=== PATIENT | male | born 1965 | race African-American/Black ===

== ENCOUNTER 2024-12-09 13:29 | Inpatient (IN) | payer MEDICAID ==
[~2024-12-09] VITALS: Ht 185.4 cm; Wt 59.9 kg
[2024-12-09] MEDS ORDERED: AZITHROMYCIN 500MG/250ML 250 ML IV ONE (13:45)
[2024-12-09 14:23] LABS: HEMATOCRIT. 41.4 % (42.0-52.0); HEMOGLOBIN. 14.3 g/dL (14.0-18.0); MEAN PLATELET VOLUME 8.8 fl (7.4-10.4); PLATELET 140 x1000/uL (130-400); RED BLOOD CELL COUNT 4.63 mill/uL (4.7-6.1); RED CELL DISTRIBUTION WIDTH 13.4 % (11.6-14.6)
[2024-12-09 14:35] LABS: INR 1.1
[2024-12-09] MEDS: SODIUM CHLORIDE 0.9% (SEPSIS BOLUS) IV ONE (14:38)
[2024-12-09 14:40] LABS: EOSINOPHILS % MANUAL 2.0 % (0.0-5.0); LYMPHOCYTES % MANUAL 26.0 % (20.0-50.0); MONOCYTES % MANUAL 3.0 % (2.0-8.0); NEUTROPHILS % MANUAL 69.0 % (45.0-75.0); PLATELET ESTIMATE NORMAL
[2024-12-09 14:42] LABS: CREATININE 2.3 mg/dL (0.6-1.3)
[2024-12-09 14:43] LABS: UREA NITROGEN BLOOD 64 mg/dL (9-23)
[2024-12-09 14:44] LABS: ASPARTATE AMINOTRANSFERASE 43 IU/L (<34); BILIRUBIN DIRECT 0.2 mg/dL (<=3.0); TROPONIN I HIGH SENSITIVITY 9 ng/L (3.0-53)
[2024-12-09 14:45] LABS: BILIRUBIN TOTAL 0.5 mg/dL (0.1-1.0); PROTEIN TOTAL 10.6 g/dL (6.0-8.3)
[2024-12-09] MEDS: CEFTRIAXONE 1GM/50ML 50 ML IV ONE (14:52)
[2024-12-09] MEDS: AZITHROMYCIN 500MG/250ML 250 ML IV NR (14:58)
[2024-12-09 16:11] LABS: CLARITY URINE CLEAR (CLEAR); COLOR URINE DARK YELLOW (YELLOW); GLUCOSE URINE NEGATIVE (NEGATIVE); KETONES URINE NEGATIVE (NEGATIVE); LEUKOCYTE ESTERASE URINE 2+ (NEGATIVE); NITRITE URINE NEGATIVE (NEGATIVE); OCCULT BLOOD URINE 1+ (NEGATIVE); PH URINE 5.0 (4.5-8.0); PROTEIN URINE 1+ (NEGATIVE); SPECIFIC GRAVITY URINE 1.022 (1.005-1.030); UROBILINOGEN URINE 1.0 E.U./dL (0.2-1.0)
[2024-12-09 16:32] LABS: BACTERIA URINE 1+; SQUAMOUS EPITHELIAL CELL URINE 1+ /lpf (RARE/1+)
[2024-12-09] MEDS ORDERED: ONDANSETRON HCL 4MG/2ML INJ IV PRN (20:45)
[2024-12-09] MEDS ORDERED: IPRATROPIUM/ALBUTEROL 0.5-3(2.5)MG/3ML NEB HHN PRN (20:45)
[2024-12-09] MEDS ORDERED: DOCUSATE SODIUM 100MG CAPSULE PO PRN (20:45)
[2024-12-09] MEDS ORDERED: DEXTROSE 50% WATER 50ML SYRINGE IV PRN (21:15)
[2024-12-09] MEDS: INSULIN LISPRO 100 UNITS/ML SUBCUT SCH (22:00)
[2024-12-09] MEDS: PIPERACILLIN/TAZO 3.375G/50ML 50 ML IV SCH (22:24)
[2024-12-09] MEDS: BLOOD SUGAR DIAGNOSTIC STRIP TEST SCH (23:00)
[2024-12-09] MEDS: SODIUM CHLORIDE 0.9% 1,000 ML IV SCH (23:44)
[2024-12-09] MEDS: VANCOMYCIN 1.5GM PMX (XELLIA) 300 ML IV NR (23:46)
[2024-12-09] MEDS: ATORVASTATIN CALCIUM 40MG TABLET PO SCH (23:46)
[2024-12-09] MEDS: PANTOPRAZOLE SODIUM 40 MG/VIAL IV SCH (23:46)
[2024-12-10] VITALS (7 sets, daily range): BP systolic 123–146; BP diastolic 74–89; PULSE 66–88; RESP 17–20; TEMP 36.1–36.8; O2SAT 96–100
[2024-12-10 02:28] LABS: *AMPHETAMINES SCREEN URINE NEGATIVE (NEGATIVE); *BARBITURATES SCREEN URINE NEGATIVE (NEGATIVE); *BENZODIAZEPINES SCREEN URINE NEGATIVE (NEGATIVE); *COCAINE SCREEN URINE NEGATIVE (NEGATIVE); CANNABINOID URINE SCREEN PRESUMPTIVE POSITIVE (NEGATIVE); ECSTASY MDMA SCREEN URINE NEGATIVE (NEGATIVE); METHADONE URINE SCREEN NEGATIVE (NEGATIVE); OPIATES URINE SCREEN NEGATIVE (NEGATIVE); PHENCYCLIDINE URINE SCREEN NEGATIVE (NEGATIVE)
[2024-12-10] MEDS: ASPIRIN 81MG TABLET PO SCH (08:48)
[2024-12-10] MEDS: CLOPIDOGREL 75MG TABLET PO SCH (08:48)
[2024-12-10] MEDS: ENOXAPARIN 30MG/0.3ML SYR SUBCUT SCH (11:47)
[2024-12-10] MEDS: PIPERACILLIN/TAZO 3.375G/50ML 50 ML IV SCH (12:01)
[2024-12-10] MEDS: INSULIN LISPRO 100 UNITS/ML SUBCUT SCH (17:04)
[2024-12-10] MEDS: BLOOD SUGAR DIAGNOSTIC STRIP TEST SCH (17:19)
[2024-12-10 21:25] LABS: HEMATOCRIT. 38.6 % (42.0-52.0); HEMOGLOBIN. 13.0 g/dL (14.0-18.0); MEAN PLATELET VOLUME 8.3 fl (7.4-10.4); PLATELET 91 x1000/uL (130-400); RED BLOOD CELL COUNT 4.27 mill/uL (4.7-6.1); RED CELL DISTRIBUTION WIDTH 13.7 % (11.6-14.6)
[2024-12-10 21:38] LABS: TRIGLYCERIDE 62 mg/dL (0-150); UREA NITROGEN BLOOD 31 mg/dL (9-23)
[2024-12-10 21:39] LABS: LDL CHOLESTEROL 96 mg/dL (5-100)
[2024-12-10 21:43] LABS: T4 FREE 0.87 ng/dL (0.89-1.76)
[2024-12-10 21:44] LABS: CREATININE 1.4 mg/dL (0.6-1.3)
[2024-12-10 21:51] LABS: EOSINOPHILS % MANUAL 2.0 % (0.0-5.0); LYMPHOCYTES % MANUAL 1.0 % (20.0-50.0); MONOCYTES % MANUAL 5.0 % (2.0-8.0); NEUTROPHILS % MANUAL 92.0 % (45.0-75.0); PLATELET ESTIMATE DECREASED
[2024-12-10] MEDS ORDERED: VANCOMYCIN 1GM/200ML PMX (BAXTER) IV SCH (22:00)
[2024-12-10] MEDS: VANCOMYCIN 750MG/150ML (BAXTER) IV SCH (22:58)
[2024-12-11] VITALS: BP 125/76; PULSE 89; RESP 20; TEMP 36.1; O2SAT 96
[2024-12-11 04:00] VITALS: BP 112/78; PULSE 95; RESP 20; TEMP 36.7; O2SAT 96
[2024-12-11 07:15] LABS: HEMATOCRIT. 33.6 % (42.0-52.0); HEMOGLOBIN. 11.6 g/dL (14.0-18.0); MEAN PLATELET VOLUME 9.1 fl (7.4-10.4); PLATELET 95 x1000/uL (130-400); RED BLOOD CELL COUNT 3.78 mill/uL (4.7-6.1); RED CELL DISTRIBUTION WIDTH 13.6 % (11.6-14.6)
[2024-12-11 07:30] LABS: CREATININE 1.2 mg/dL (0.6-1.3); UREA NITROGEN BLOOD 25 mg/dL (9-23)
[2024-12-11 07:32] LABS: PHOSPHORUS 2.0 mg/dL (2.5-4.9)
[2024-12-11 08:00] VITALS: BP 107/68; PULSE 94; RESP 16; TEMP 36.7; O2SAT 96
[2024-12-11] MEDS: FAMOTIDINE 20MG/2ML VIAL IV SCH (09:57)
[2024-12-11] MEDS: MAGNESIUM 2 G PREMIX 50 ML IV SCH (09:58)
[2024-12-11] MEDS: SODIUM PHOSPHATE 30 MMOL in DEXT 5% WATER 490 ML IV SCH (11:59)
[2024-12-11 12:00] VITALS: BP 129/85; PULSE 85; RESP 18; TEMP 36.3; O2SAT 96
[2024-12-11] MEDS: VANCOMYCIN 1GM/200ML PMX (BAXTER) IV SCH (12:30)
[2024-12-11 16:00] VITALS: BP 127/85; PULSE 78; RESP 18; TEMP 36.4; O2SAT 96
[2024-12-11 16:48] LABS: BAND% 3.0 % (1.0-6.0); EOSINOPHILS % MANUAL 1.0 % (0.0-5.0); LYMPHOCYTES % MANUAL 2.0 % (20.0-50.0); MONOCYTES % MANUAL 8.0 % (2.0-8.0); NEUTROPHILS % MANUAL 86.0 % (45.0-75.0); PLATELET ESTIMATE DECREASED
[2024-12-11 20:00] VITALS: BP 128/86; PULSE 82; RESP 20; TEMP 36.9; O2SAT 97
[2024-12-12] VITALS: BP 120/66; PULSE 80; RESP 20; TEMP 36.9; O2SAT 97
[2024-12-12 04:00] VITALS: BP 127/81; PULSE 65; RESP 18; TEMP 37; O2SAT 97
[2024-12-12 07:02] LABS: CREATININE 1.1 mg/dL (0.6-1.3)
[2024-12-12 07:03] LABS: UREA NITROGEN BLOOD 16 mg/dL (9-23)
[2024-12-12 07:05] LABS: PHOSPHORUS 2.0 mg/dL (2.5-4.9)
[2024-12-12 07:07] LABS: T4 FREE 0.84 ng/dL (0.89-1.76)
[2024-12-12 07:13] LABS: PLATELET 81 x1000/uL (130-400); RED BLOOD CELL COUNT 3.52 mill/uL (4.7-6.1); RED CELL DISTRIBUTION WIDTH 13.3 % (11.6-14.6)
[2024-12-12 08:00] VITALS: BP 130/90; PULSE 80; RESP 18; TEMP 35.7; O2SAT 93
[2024-12-12] MEDS: POTASSIUM CHLORIDE 20MEQ TABLET SR PO SCH (08:39)
[2024-12-12 09:11] LABS: ABSOLUTE BASOPHILS 0.0 x10E3/uL (0.0-0.2); ABSOLUTE EOSINOPHILS 0.2 x10E3/uL (0.0-0.4); ABSOLUTE LYMPHOCYTES 0.2 x10E3/uL (0.7-3.1); ABSOLUTE MONOCYTES 0.3 x10E3/uL (0.1-0.9); ABSOLUTE NEUTROPHILS 4.8 x10E3/uL (1.4-7.0); BANDS 2 % (Not Estab.); BASOPHILS 0 % (Not Estab.); EOSINOPHILS 3 % (Not Estab.); HEMATOLOGY COMMENT Note: (.); IMMATURE CELLS Note (.); LYMPHOCYTES 4 % (Not Estab.); MEAN CORPUSCULAR HGB CONC. 33.8 g/dL (31.5-35.7); MONOCYTES 5 % (Not Estab.); NEUTROPHILS 85 % (Not Estab.); PLATELETS 74 x10E3/uL (150-450); RBC 3.80 x10E6/uL (4.14-5.80); RED CELL DISTRIBUTION WIDTH 13.3 % (11.6-15.4); WBC 5.5 x10E3/uL (3.4-10.8)
[2024-12-12 10:11] LABS: % CD 3 POS. LYMPHOCYTES 94.8 % (57.5-86.2); % CD 4 POS. LYMPHOCYTES 1.3 % (30.8-58.5); % CD 8 POS. LYMPH 93.3 % (12.0-35.5); ABSOLUTE CD 3 190 /uL (622-2402); ABSOLUTE CD 4 HELPER 3 /uL (359-1519); ABSOLUTE CD 8 SUPPRESSOR 187 /uL (109-897)
[2024-12-12] MEDS: SODIUM PHOSPHATE 30 MMOL in DEXT 5% WATER 490 ML IV ONE (11:00)
[2024-12-12 12:00] VITALS: BP 129/92; PULSE 71; RESP 18; TEMP 36.4; O2SAT 100
[2024-12-12] MEDS: AZITHROMYCIN 500 MG TABLET PO SCH (13:34)
[2024-12-12] MEDS: SULFAMETHOXAZOLE/TRIMETHOPRIM 400/80MG TAB PO SCH (13:34)
[2024-12-12 16:00] VITALS: BP 129/86; PULSE 97; RESP 20; TEMP 36.1; O2SAT 97
[2024-12-12 20:00] VITALS: BP 117/80; PULSE 74; RESP 20; TEMP 37; O2SAT 98
[2024-12-12] MEDS: CEFEPIME 2GM PREMIX 100ML IV SCH (21:12)
[2024-12-12] MEDS: METRONIDAZOLE 500 MG PREMIX 100 ML IV SCH (21:12)
[2024-12-13] VITALS: BP 120/60; PULSE 82; RESP 18; TEMP 36.8; O2SAT 97
[2024-12-13 04:00] VITALS: BP 138/90; PULSE 79; RESP 20; TEMP 36.8; O2SAT 98
[2024-12-13 08:00] VITALS: BP 134/79; PULSE 60; RESP 18; TEMP 36.2; O2SAT 98
[2024-12-13 08:04] VITALS: BP 134/79; PULSE 60; RESP 18; TEMP 36.2; O2SAT 98
[2024-12-13 12:00] VITALS: BP 124/85; PULSE 64; RESP 18; TEMP 36.4; O2SAT 98
[2024-12-13 16:00] VITALS: BP 126/92; PULSE 64; RESP 18; TEMP 36.1; O2SAT 98
[2024-12-14] VITALS: BP 138/96; PULSE 65; RESP 20; TEMP 36.2; O2SAT 99
[2024-12-14 04:00] VITALS: BP 141/94; PULSE 64; RESP 20; TEMP 35.9; O2SAT 97
[2024-12-14 07:11] LABS: HIV 1 ABS Reactive (Non Reactive); HIV 2 ABS Non Reactive (Non Reactive); HIV SCREEN 4G Preliminary Reactive (Non Reactive)
[2024-12-14 08:00] VITALS: BP 127/79; PULSE 63; RESP 18; TEMP 36.4; O2SAT 98
[2024-12-14 12:10] VITALS: BP 142/92; PULSE 60; RESP 18; TEMP 36.6; O2SAT 98
[2024-12-14 13:03] LABS: PLATELET 92 x1000/uL (130-400); RED BLOOD CELL COUNT 3.66 mill/uL (4.7-6.1); RED CELL DISTRIBUTION WIDTH 13.9 % (11.6-14.6)
[2024-12-14 13:08] LABS: CREATININE 0.9 mg/dL (0.6-1.3)
[2024-12-14 13:09] LABS: UREA NITROGEN BLOOD 9 mg/dL (9-23)
[2024-12-14 14:08] LABS: A/G RATIO 0.5 (0.7-1.7); BETA GLOBULIN 1.0 g/dL (0.7-1.3); GAMMA GLOBULINS 3.9 g/dL (0.4-1.8); GLOBULIN TOTAL 5.7 g/dL (2.2-3.9); M-SPIKE Not Observed g/dL (Not Observed); TOTAL PROTEIN SERUM 8.4 g/dL (6.0-8.5)
[2024-12-14 16:06] VITALS: BP 136/96; PULSE 68; RESP 18; TEMP 36.4; O2SAT 97
[2024-12-14 20:00] VITALS: BP 138/85; PULSE 68; RESP 20; TEMP 36.2; O2SAT 100
[2024-12-15] VITALS: BP 141/92; PULSE 74; RESP 21; TEMP 35.9; O2SAT 99
[2024-12-15 04:00] VITALS: BP 144/109; PULSE 65; RESP 20; TEMP 36.2; O2SAT 100
[2024-12-15 06:59] LABS: PLATELET 108 x1000/uL (130-400); RED BLOOD CELL COUNT 3.83 mill/uL (4.7-6.1); RED CELL DISTRIBUTION WIDTH 13.4 % (11.6-14.6)
[2024-12-15 07:08] LABS: CREATININE 1.0 mg/dL (0.6-1.3); UREA NITROGEN BLOOD 7 mg/dL (9-23)
[2024-12-15 07:10] LABS: PHOSPHORUS 2.1 mg/dL (2.5-4.9)
[2024-12-15 08:00] VITALS: BP 146/99; PULSE 74; RESP 18; TEMP 36.3; O2SAT 98
[2024-12-15] MEDS: MAGNESIUM 1 G PREMIX 100 ML IV NR (11:55)
[2024-12-15] MEDS: SODIUM PHOSPHATE 10 MMOL in DEXT 5% WATER 246.6667 ML IV NR (11:56)
[2024-12-15] MEDS: CALCIUM GLUCONATE 100MG/ML 10ML VIAL IV NR (11:57)
[2024-12-15 12:00] VITALS: BP 144/102; PULSE 78; RESP 18; TEMP 36.3; O2SAT 98
[2024-12-15 16:00] VITALS: BP 152/106; PULSE 76; RESP 18; TEMP 36.4; O2SAT 100
[2024-12-15] MEDS: SERTRALINE HCL 25MG TABLET PO SCH (16:01)
[2024-12-15] MEDS: CLONIDINE 0.1MG TABLET PO PRN (17:25)
[2024-12-15 20:00] VITALS: BP 139/105; PULSE 79; RESP 18; TEMP 36.8; O2SAT 100
[2024-12-16] VITALS: BP 146/104; PULSE 78; RESP 20; TEMP 36.6; O2SAT 97
[2024-12-16 04:00] VITALS: BP 145/106; PULSE 81; RESP 21; TEMP 35.9; O2SAT 98
[2024-12-16 06:04] LABS: PLATELET 102 x1000/uL (130-400); RED BLOOD CELL COUNT 3.87 mill/uL (4.7-6.1); RED CELL DISTRIBUTION WIDTH 13.6 % (11.6-14.6)
[2024-12-16 06:39] LABS: CREATININE 0.9 mg/dL (0.6-1.3); UREA NITROGEN BLOOD 7 mg/dL (9-23)
[2024-12-16 08:00] VITALS: BP 147/104; PULSE 82; RESP 18; TEMP 36.7; O2SAT 99
[2024-12-16 12:00] VITALS: BP 143/90; PULSE 70; RESP 18; TEMP 36.6; O2SAT 99
[2024-12-16 16:00] VITALS: BP 142/92; PULSE 74; RESP 18; TEMP 36.6; O2SAT 100
[2024-12-16 20:00] VITALS: BP 144/99; PULSE 63; RESP 18; TEMP 36.4; O2SAT 99
[2024-12-17] VITALS: BP 142/96; PULSE 75; RESP 18; TEMP 36.6; O2SAT 99
[2024-12-17 04:00] VITALS: BP 137/96; PULSE 74; RESP 17; TEMP 36.5; O2SAT 98
[2024-12-17 08:00] VITALS: BP 120/50; PULSE 80; RESP 18; TEMP 36.6; O2SAT 98
[2024-12-17 08:46] LABS: PLATELET 104 x1000/uL (130-400); RED BLOOD CELL COUNT 3.86 mill/uL (4.7-6.1); RED CELL DISTRIBUTION WIDTH 13.5 % (11.6-14.6)
[2024-12-17 09:10] LABS: CREATININE 1.0 mg/dL (0.6-1.3)
[2024-12-17 09:11] LABS: UREA NITROGEN BLOOD 10 mg/dL (9-23)
[2024-12-17 09:13] LABS: PHOSPHORUS 2.2 mg/dL (2.5-4.9)
[2024-12-17] MEDS: MAGNESIUM 2 G PREMIX 50 ML IV NR (11:07)
[2024-12-17 12:00] VITALS: BP 158/104; PULSE 81; RESP 18; TEMP 36.6; O2SAT 94
[2024-12-17] MEDS: SODIUM PHOSPHATE 30 MMOL in DEXT 5% WATER 490 ML IV NR (13:03)
[2024-12-17 16:00] VITALS: BP 155/103; PULSE 88; RESP 18; TEMP 36.6; O2SAT 98
[2024-12-17] MEDS: AMLODIPINE 5MG TABLET PO SCH (16:30)
[2024-12-17 20:00] VITALS: BP 151/107; PULSE 87; RESP 16; TEMP 36.8; O2SAT 99
[2024-12-18] VITALS: BP_SYST 14; BP_SYST 145; BP_DIAS 98; PULSE 96; RESP 16; TEMP 36.4; O2SAT 98
[2024-12-18 04:00] VITALS: BP 152/100; PULSE 80; RESP 16; TEMP 37; O2SAT 98
[2024-12-18 07:27] LABS: CREATININE 0.9 mg/dL (0.6-1.3); UREA NITROGEN BLOOD 12 mg/dL (9-23)
[2024-12-18 07:29] LABS: PHOSPHORUS 2.6 mg/dL (2.5-4.9)
[2024-12-18 07:39] LABS: PLATELET 116 x1000/uL (130-400); RED BLOOD CELL COUNT 3.67 mill/uL (4.7-6.1); RED CELL DISTRIBUTION WIDTH 13.6 % (11.6-14.6)
[2024-12-18 08:00] VITALS: BP 136/96; PULSE 87; RESP 18; TEMP 37.1; O2SAT 98
[2024-12-18] MEDS: POTASSIUM CHLORIDE 20MEQ TABLET SR PO SCH (08:43)
[2024-12-18 12:00] VITALS: BP 147/100; PULSE 92; RESP 18; TEMP 36.5; O2SAT 98
[2024-12-18 16:00] VITALS: BP_SYST 147; BP_SYST 167; BP_DIAS 100; PULSE 92; RESP 18; TEMP 36.5; O2SAT 98
[2024-12-18] MEDS ORDERED: POTASSIUM CHLORIDE 20 MEQ in DEXT 5% WATER 90 ML IV ONE (16:30)
[2024-12-18] MEDS: KCL 20MEQ/100ML PREMIX 100 ML IV SCH (16:34)
[2024-12-18] MEDS: HYDRALAZINE 20MG/ML VIAL IV PRN (16:34)
[2024-12-18 20:00] VITALS: BP 151/98; PULSE 109; RESP 17; TEMP 36.7; O2SAT 96
[2024-12-19] VITALS: BP 151/99; PULSE 101; RESP 18; TEMP 36.6; O2SAT 98
[2024-12-19 04:00] VITALS: BP 147/102; PULSE 94; RESP 18; TEMP 36.6; O2SAT 98
[2024-12-19 05:56] LABS: CREATININE 0.9 mg/dL (0.6-1.3)
[2024-12-19 05:57] LABS: UREA NITROGEN BLOOD 16 mg/dL (9-23)
[2024-12-19 05:59] LABS: PHOSPHORUS 2.3 mg/dL (2.5-4.9)
[2024-12-19 06:43] LABS: PLATELET 117 x1000/uL (130-400); RED BLOOD CELL COUNT 3.76 mill/uL (4.7-6.1); RED CELL DISTRIBUTION WIDTH 13.7 % (11.6-14.6)
[2024-12-19 08:00] VITALS: BP 141/98; PULSE 90; RESP 18; TEMP 36.4; O2SAT 98
[2024-12-19] MEDS: AZITHROMYCIN 600 MG TABLET PO SCH (09:00)
[2024-12-19] MEDS: SULFAMETHOXAZOLE/TRIMETHOPRIM 400/80MG TAB PO SCH (09:00)
[2024-12-19] MEDS: FLUCONAZOLE 100MG TABLET PO SCH (09:30)
[2024-12-19] MEDS: ENOXAPARIN 40MG/0.4ML SYR SUBCUT SCH (09:35)
[2024-12-19 12:00] VITALS: BP 143/100; PULSE 78; RESP 20; TEMP 35.8; O2SAT 99
[2024-12-19] MEDS: NYSTATIN 100,000 UNITS/ML 5ML UDC SSW SCH (14:30)
[2024-12-19] MEDS: SODIUM PHOSPHATE 20 MMOL in DEXT 5% WATER 243.3333 ML IV ONE (14:52)
[2024-12-19 16:00] VITALS: BP 132/95; PULSE 82; RESP 20; TEMP 35.9; O2SAT 100
[2024-12-19 20:00] VITALS: BP 137/98; PULSE 85; RESP 16; TEMP 36.3; O2SAT 100
[2024-12-20] VITALS: BP 151/101; PULSE 90; RESP 16; TEMP 36.3; O2SAT 100
[2024-12-20 04:00] VITALS: BP 137/103; RESP 16; TEMP 36.4; O2SAT 100
[2024-12-20 08:00] VITALS: BP 141/103; PULSE 91; RESP 18; TEMP 36.4; O2SAT 100
[2024-12-20] MEDS ORDERED: LIDOCAINE HCL 1% 10 MG/ML 10ML VIAL ONE (09:24)
[2024-12-20 11:14] LABS: CSF APPEARANCE CLEAR (CLEAR); CSF TOTAL VOLUME 31.9 mL
[2024-12-20 11:20] LABS: PLATELET 106 x1000/uL (130-400); RED BLOOD CELL COUNT 3.83 mill/uL (4.7-6.1); RED CELL DISTRIBUTION WIDTH 14.3 % (11.6-14.6)
[2024-12-20 11:36] LABS: CREATININE 0.8 mg/dL (0.6-1.3); UREA NITROGEN BLOOD 17 mg/dL (9-23)
[2024-12-20 11:38] LABS: PHOSPHORUS 2.7 mg/dL (2.5-4.9)
[2024-12-20 12:00] VITALS: BP 139/86; PULSE 88; RESP 18; TEMP 36.4; O2SAT 100
[2024-12-20] MEDS: SERTRALINE HCL 50MG TABLET PO SCH (13:36)
[2024-12-20 16:00] VITALS: BP 137/99; PULSE 77; RESP 20; TEMP 36.3
[2024-12-20] MEDS: MAGNESIUM 2 G PREMIX 50 ML IV SCH (16:34)
[2024-12-20 20:00] VITALS: BP 119/85; PULSE 85; RESP 18; TEMP 36; O2SAT 99
[2024-12-21] VITALS: BP 125/83; PULSE 89; RESP 20; TEMP 36.9; O2SAT 98
[2024-12-21 04:00] VITALS: BP 123/89; PULSE 76; RESP 18; TEMP 36.7; O2SAT 97
[2024-12-21 05:47] LABS: CREATININE 0.7 mg/dL (0.6-1.3); UREA NITROGEN BLOOD 17 mg/dL (9-23)
[2024-12-21 05:49] LABS: PHOSPHORUS 1.9 mg/dL (2.5-4.9)
[2024-12-21 06:58] LABS: RED BLOOD CELL COUNT 3.68 mill/uL (4.7-6.1); RED CELL DISTRIBUTION WIDTH 14.3 % (11.6-14.6)
[2024-12-21 08:00] VITALS: BP 128/90; PULSE 68; RESP 17; TEMP 35.7; O2SAT 99
[2024-12-21 08:27] LABS: PLATELET 104 x1000/uL (130-400)
[2024-12-21 12:00] VITALS: BP 129/92; PULSE 79; RESP 18; TEMP 35.9; O2SAT 100
[2024-12-21] MEDS: SODIUM PHOSPHATE 30 MMOL in DEXT 5% WATER 490 ML IV NR (12:13)
[2024-12-21 16:00] VITALS: BP 127/83; PULSE 89; RESP 18; TEMP 36.2; O2SAT 100
[2024-12-21 20:00] VITALS: BP 145/103; PULSE 83; RESP 18; TEMP 36.6; O2SAT 99
[2024-12-22] VITALS: BP 135/81; PULSE 79; RESP 19; TEMP 36.1; O2SAT 100
[2024-12-22 04:00] VITALS: BP 124/88; PULSE 94; RESP 21; TEMP 36.8; O2SAT 100
[2024-12-22 06:02] LABS: PLATELET 116 x1000/uL (130-400); RED BLOOD CELL COUNT 3.44 mill/uL (4.7-6.1); RED CELL DISTRIBUTION WIDTH 14.0 % (11.6-14.6)
[2024-12-22 06:11] LABS: CREATININE 0.7 mg/dL (0.6-1.3); UREA NITROGEN BLOOD 12 mg/dL (9-23)
[2024-12-22 06:14] LABS: PHOSPHORUS 2.4 mg/dL (2.5-4.9)
[2024-12-22 08:12] VITALS: BP 137/90; PULSE 82; RESP 18; TEMP 36.6; O2SAT 99
[2024-12-22] MEDS: MAGNESIUM 4 G PREMIX 100 ML IV NR (10:09)
[2024-12-22] MEDS: SODIUM PHOSPHATE 20 MMOL in DEXT 5% WATER 243.3333 ML IV NR (10:10)
[2024-12-22 12:00] VITALS: BP 120/77; PULSE 77; RESP 18; TEMP 36.5; O2SAT 100
[2024-12-22 16:00] VITALS: BP 126/86; PULSE 88; RESP 18; TEMP 36.6; O2SAT 100
[2024-12-22 20:00] VITALS: BP 127/86; PULSE 94; RESP 21; TEMP 36.3; O2SAT 100
[2024-12-23] VITALS: BP 124/71; PULSE 111; RESP 18; TEMP 36.5; O2SAT 100
[2024-12-23 04:00] VITALS: BP 128/79; PULSE 115; RESP 19; TEMP 36.9; O2SAT 100
[2024-12-23 08:00] VITALS: BP 128/73; PULSE 120; RESP 18; TEMP 37.2
[2024-12-23] MEDS: ACETAMINOPHEN 325MG TABLET PO PRN (11:48)
[2024-12-23] MEDS: METOPROLOL TARTRATE 5MG/5ML VIAL IV NR (11:49)
[2024-12-23 12:00] VITALS: BP 110/71; PULSE 127; RESP 18; TEMP 37.9; O2SAT 96
[2024-12-23 12:34] LABS: CREATININE 0.8 mg/dL (0.6-1.3)
[2024-12-23 12:35] LABS: PLATELET 131 x1000/uL (130-400); RED BLOOD CELL COUNT 3.28 mill/uL (4.7-6.1); RED CELL DISTRIBUTION WIDTH 14.1 % (11.6-14.6); UREA NITROGEN BLOOD 10 mg/dL (9-23)
[2024-12-23 12:37] LABS: PHOSPHORUS 1.8 mg/dL (2.5-4.9)
[2024-12-23] MEDS: MAGNESIUM 4 G PREMIX 100 ML IV NR (15:08)
[2024-12-23] MEDS: SODIUM PHOSPHATE 30 MMOL in DEXT 5% WATER 490 ML IV NR (15:08)
[2024-12-23 16:00] VITALS: BP 138/96; PULSE 107; RESP 18; TEMP 37.1; O2SAT 100
[2024-12-24] VITALS: BP 137/91; PULSE 105; RESP 18; TEMP 37.1; O2SAT 97
[2024-12-24 04:00] VITALS: BP 138/95; PULSE 103; RESP 18; TEMP 36.5; O2SAT 99
[2024-12-24 08:00] VITALS: BP 134/95; PULSE 105; RESP 18; TEMP 37.1; O2SAT 98
[2024-12-24 08:34] LABS: PLATELET 107 x1000/uL (130-400); RED BLOOD CELL COUNT 3.33 mill/uL (4.7-6.1); RED CELL DISTRIBUTION WIDTH 14.2 % (11.6-14.6)
[2024-12-24 08:36] LABS: CREATININE 0.7 mg/dL (0.6-1.3); UREA NITROGEN BLOOD 11 mg/dL (9-23)
[2024-12-24 12:00] VITALS: BP 129/86; PULSE 102; RESP 18; TEMP 37; O2SAT 96
[2024-12-24 16:00] VITALS: BP 135/93; PULSE 113; RESP 18; TEMP 36.8; O2SAT 96
[2024-12-24 20:00] VITALS: BP_SYST 98; PULSE 116; RESP 18; TEMP 36.6; O2SAT 96
[2024-12-25] VITALS: BP 134/94; PULSE 118; RESP 19; TEMP 36.6; O2SAT 97
[2024-12-25 04:00] VITALS: BP 129/85; PULSE 120; RESP 20; TEMP 36.6; O2SAT 97
[2024-12-25 08:00] VITALS: BP 139/84; PULSE 123; RESP 18; TEMP 36.4; O2SAT 98
[2024-12-25] MEDS: METOPROLOL TARTRATE 25MG TABLET PO SCH (08:42)
[2024-12-25 12:09] VITALS: BP 126/81; PULSE 105; RESP 20; TEMP 37.1; O2SAT 95
[2024-12-25 12:14] LABS: BG BASE EXCESS 3.1 mmol/L (-2.0-3.0); BG CARBOXYHEMOGLOBIN 0.3 % (0.5-1.5); BG DEOXYHEMOGLOBIN 7.2 % (0.0-5.0); BG FRACTION INSPIRED OXYGEN 21; BG HCO3 ACT 25.3 mmol/L (21.0-28.0); BG METHEMOGLOBIN 0.3 % (0.5-1.5); BG OXYGEN SATURATION 92.8 % (94.0-98.0); BG OXYHEMOGLOBIN 92.2 % (94.0-98.0); BG PCO2 31.0 mmHg (35.0-48.0); BG PH 7.530 (7.350-7.450); BG PO2 60.7 mmHg (83.0-108.0); BG SAMPLE SITE LEFT BRACHIAL; BG TOTAL HEMOGLOBIN 12.2 g/dL (13.5-17.5); BG VENT MODE ROOM AIR
[2024-12-25] MEDS ORDERED: ENOXAPARIN 40MG/0.4ML SYR SUBCUT SCH (13:00)
[2024-12-25] MEDS: ENOXAPARIN 80MG/0.8ML SYR SUBCUT SCH (14:00)
[2024-12-25] MEDS: PANTOPRAZOLE SODIUM 40 MG/VIAL IV SCH (14:15)
[2024-12-25 15:06] LABS: PLATELET 107 x1000/uL (130-400); RED BLOOD CELL COUNT 3.28 mill/uL (4.7-6.1); RED CELL DISTRIBUTION WIDTH 14.3 % (11.6-14.6)
[2024-12-25 15:09] LABS: CREATININE 0.8 mg/dL (0.6-1.3)
[2024-12-25 15:10] LABS: UREA NITROGEN BLOOD 18 mg/dL (9-23)
[2024-12-25 15:12] LABS: PHOSPHORUS 3.4 mg/dL (2.5-4.9)
[2024-12-25 16:00] VITALS: BP 131/83; PULSE 100; RESP 18; TEMP 36.5; O2SAT 97
[2024-12-25] MEDS: MAGNESIUM 2 G PREMIX 50 ML IV NR (18:02)
[2024-12-25] MEDS: SODIUM CHLORIDE 0.9% 500 ML IV ONE (18:09)
[2024-12-25 20:00] VITALS: BP 132/83; PULSE 109; RESP 17; TEMP 36.9; O2SAT 92
[2024-12-25] MEDS ORDERED: IOHEXOL-350 100 ML BOTTLE ONE (23:40)
[2024-12-26] VITALS: BP 132/81; PULSE 106; RESP 16; TEMP 37.5; O2SAT 96
[2024-12-26 04:00] VITALS: BP 135/83; PULSE 98; RESP 18; TEMP 37.2; O2SAT 98
[2024-12-26 06:07] LABS: CREATININE 0.9 mg/dL (0.6-1.3); UREA NITROGEN BLOOD 19 mg/dL (9-23)
[2024-12-26 06:18] LABS: PLATELET 123 x1000/uL (130-400); RED BLOOD CELL COUNT 3.37 mill/uL (4.7-6.1); RED CELL DISTRIBUTION WIDTH 14.3 % (11.6-14.6)
[2024-12-26 08:00] VITALS: BP 126/73; PULSE 102; RESP 18; TEMP 36.5; O2SAT 96
[2024-12-26] MEDS: SODIUM CHLORIDE 0.9% 1,000 ML IV SCH (09:34)
[2024-12-26 12:00] VITALS: BP 132/92; PULSE 103; RESP 18; TEMP 36.4; O2SAT 98
[2024-12-26 16:00] VITALS: BP 136/89; PULSE 98; RESP 18; TEMP 36.8; O2SAT 97
[2024-12-26] MEDS: SULFAMETHOXAZOLE/TRIMETHOPRIM 800/160MG TABLET PO SCH (18:42)
[2024-12-26 20:00] VITALS: BP 119/71; PULSE 110; RESP 17; TEMP 36.5; O2SAT 97
[2024-12-27] VITALS: BP 113/69; PULSE 93; RESP 18; TEMP 36.7; O2SAT 96
[2024-12-27 04:00] VITALS: BP_SYST 113; BP_SYST 127; BP_SYST 136; BP_DIAS 69; BP_DIAS 78; BP_DIAS 84; PULSE 112; PULSE 59; PULSE 93; RESP 18; TEMP 35.8; TEMP 36.3; TEMP 36.7; O2SAT 96
[2024-12-27 07:45] LABS: CREATININE 0.9 mg/dL (0.6-1.3); UREA NITROGEN BLOOD 18 mg/dL (9-23)
[2024-12-27 07:46] LABS: LACTATE DEHYDROGENASE 179 IU/L (120-246)
[2024-12-27 07:54] LABS: PLATELET 142 x1000/uL (130-400); RED BLOOD CELL COUNT 2.98 mill/uL (4.7-6.1); RED CELL DISTRIBUTION WIDTH 14.1 % (11.6-14.6)
[2024-12-27] MEDS: ENOXAPARIN 40MG/0.4ML SYR SUBCUT SCH (08:17)
[2024-12-27 08:22] VITALS: BP 134/78; PULSE 112; RESP 18; TEMP 36.9; O2SAT 94
[2024-12-27 12:07] VITALS: BP 120/74; PULSE 110; RESP 18; TEMP 38; O2SAT 96
[2024-12-27] MEDS: BICTEGRAVIR 50MG/EMTRICITABINE 200MG/TENOFOVIR ALA 25MG PO SCH (14:18)
[2024-12-27 16:10] VITALS: BP 124/78; PULSE 110; RESP 18; TEMP 37; O2SAT 95
[2024-12-27 20:00] VITALS: BP 132/82; PULSE 111; RESP 16; TEMP 38.3; O2SAT 95
[2024-12-28] VITALS: BP 130/85; PULSE 111; RESP 20; TEMP 37.2; O2SAT 96
[2024-12-28 04:00] VITALS: BP 127/73; PULSE 99; RESP 16; TEMP 37.2; O2SAT 95
[2024-12-28 08:12] VITALS: BP 120/80; PULSE 100; RESP 18; TEMP 36.8; O2SAT 97
[2024-12-28 08:13] LABS: CREATININE 0.9 mg/dL (0.6-1.3)
[2024-12-28 08:14] LABS: UREA NITROGEN BLOOD 18 mg/dL (9-23)
[2024-12-28 08:16] LABS: PHOSPHORUS 3.5 mg/dL (2.5-4.9)
[2024-12-28 08:30] LABS: PLATELET 142 x1000/uL (130-400); RED BLOOD CELL COUNT 2.87 mill/uL (4.7-6.1); RED CELL DISTRIBUTION WIDTH 13.7 % (11.6-14.6)
[2024-12-28] MEDS: MAGNESIUM 2 G PREMIX 50 ML IV NR (09:15)
[2024-12-28] MEDS ORDERED: HYDRALAZINE 10 MG in SODIUM CHLORIDE 0.9% 49.5 ML IV PRN (11:00)
[2024-12-28 12:00] VITALS: BP 118/74; PULSE 89; RESP 20; TEMP 36.3; O2SAT 96
[2024-12-28 16:00] VITALS: BP 116/75; PULSE 94; RESP 20; TEMP 36.6; O2SAT 9
[2024-12-28 20:00] VITALS: BP 115/78; PULSE 90; RESP 18; TEMP 36.4; O2SAT 96
[2024-12-28] MEDS: PENICILLIN G BENZATHINE 1,200,000 UNITS/2ML SYR IM SCH (21:48)
[2024-12-29] VITALS: BP 112/73; PULSE 83; RESP 18; TEMP 36.3; O2SAT 96
[2024-12-29 04:00] VITALS: BP 121/83; PULSE 87; RESP 18; TEMP 36.4; O2SAT 95
[2024-12-29] MEDS: LEVOTHYROXINE SODIUM 25MCG TABLET PO SCH (06:14)
[2024-12-29 08:00] VITALS: BP 130/80; PULSE 94; RESP 18; TEMP 36.4; O2SAT 99
[2024-12-29 08:00] LABS: OSMOLALITY URINE 540 mOsm/kg (500-850)
[2024-12-29 08:08] LABS: SODIUM URINE RANDOM 186 mEq/L
[2024-12-29 08:19] LABS: PLATELET 161 x1000/uL (130-400); RED BLOOD CELL COUNT 2.99 mill/uL (4.7-6.1); RED CELL DISTRIBUTION WIDTH 13.4 % (11.6-14.6)
[2024-12-29 08:37] LABS: CREATININE 0.8 mg/dL (0.6-1.3); UREA NITROGEN BLOOD 17 mg/dL (9-23)
[2024-12-29 08:39] LABS: PHOSPHORUS 3.4 mg/dL (2.5-4.9)
[2024-12-29] MEDS: BICTEGRAVIR 50MG/EMTRICITABINE 200MG/TENOFOVIR ALA 25MG PO SCH (10:29)
[2024-12-29 12:00] VITALS: BP 124/84; PULSE 74; RESP 18; TEMP 36.5; O2SAT 100
[2024-12-29 16:00] VITALS: BP 118/85; PULSE 77; RESP 17; TEMP 36.5; O2SAT 96
[2024-12-29] MEDS ORDERED: SODIUM POLYSTYRENE SULFONATE 15 G/60 ML BOT PO ONE (16:30)
[2024-12-29] MEDS ORDERED: SODIUM ZIRCONIUM CYCLOSILICATE 10GM/PACKET PO SCH (17:00)
[2024-12-29] MEDS: MAGNESIUM 4 G PREMIX 100 ML IV SCH (18:00)
[2024-12-29 20:00] VITALS: BP 111/64; PULSE 83; RESP 18; TEMP 36.6; O2SAT 95
[2024-12-29] MEDS: WATER IV SCH (22:00)
[2024-12-29] MEDS: DEXTROSE IV SCH (22:00)
[2024-12-29] MEDS: PENICILLIN POTASSIUM IV SCH (22:00)
[2024-12-30] VITALS (17 sets, daily range): BP systolic 113–159; BP diastolic 74–85; PULSE 75–122; RESP 15–32; TEMP 36.4–37.4; O2SAT 88–100
[2024-12-30] MEDS: GUAIFENESIN 200MG/10ML SUGAR FREE UDC PO PRN (02:10)
[2024-12-30 03:30] LABS: BG BASE EXCESS -2.8 mmol/L (-2.0-3.0); BG CARBOXYHEMOGLOBIN 0.9 % (0.5-1.5); BG DEOXYHEMOGLOBIN 27.1 % (0.0-5.0); BG FRACTION INSPIRED OXYGEN 21; BG HCO3 ACT 19.1 mmol/L (21.0-28.0); BG METHEMOGLOBIN 0.1 % (0.5-1.5); BG OXYGEN SATURATION 72.6 % (94.0-98.0); BG OXYHEMOGLOBIN 71.9 % (94.0-98.0); BG PCO2 26.2 mmHg (35.0-48.0); BG PH 7.481 (7.350-7.450); BG PO2 41.9 mmHg (83.0-108.0); BG SAMPLE SITE RIGHT RADIAL; BG TOTAL HEMOGLOBIN 13.4 g/dL (13.5-17.5); BG VENT MODE ROOM AIR
[2024-12-30 03:46] LABS: BG BASE EXCESS -4.1 mmol/L (-2.0-3.0); BG CARBOXYHEMOGLOBIN 0.7 % (0.5-1.5); BG DEOXYHEMOGLOBIN 14.1 % (0.0-5.0); BG FLOW(L/min) 3.00 L/min; BG FRACTION INSPIRED OXYGEN 32; BG HCO3 ACT 17.8 mmol/L (21.0-28.0); BG METHEMOGLOBIN 0.1 % (0.5-1.5); BG OXYGEN SATURATION 85.8 % (94.0-98.0); BG OXYHEMOGLOBIN 85.1 % (94.0-98.0); BG PCO2 24.1 mmHg (35.0-48.0); BG PH 7.486 (7.350-7.450); BG PO2 53.5 mmHg (83.0-108.0); BG SAMPLE SITE RIGHT RADIAL; BG TOTAL HEMOGLOBIN 11.7 g/dL (13.5-17.5); BG VENT MODE NASAL CANNULA
[2024-12-30] MEDS: IPRATROPIUM/ALBUTEROL 0.5-3(2.5)MG/3ML NEB HHN NR (04:05)
[2024-12-30] MEDS: IPRATROPIUM/ALBUTEROL 0.5-3(2.5)MG/3ML NEB HHN SCH (08:08)
[2024-12-30 08:40] LABS: HEMATOCRIT. 27.1 % (42.0-52.0); HEMOGLOBIN. 9.5 g/dL (14.0-18.0); MEAN PLATELET VOLUME 7.6 fl (7.4-10.4); PLATELET 313 x1000/uL (130-400); RED BLOOD CELL COUNT 3.12 mill/uL (4.7-6.1); RED CELL DISTRIBUTION WIDTH 13.2 % (11.6-14.6)
[2024-12-30 08:53] LABS: CREATININE 0.9 mg/dL (0.6-1.3); UREA NITROGEN BLOOD 17 mg/dL (9-23)
[2024-12-30 08:55] LABS: ASPARTATE AMINOTRANSFERASE 127 IU/L (<34); BILIRUBIN DIRECT 0.2 mg/dL (<=3.0); BILIRUBIN TOTAL 0.4 mg/dL (0.1-1.0); PHOSPHORUS 3.6 mg/dL (2.5-4.9)
[2024-12-30 10:26] LABS: BG BASE EXCESS -2.7 mmol/L (-2.0-3.0); BG CARBOXYHEMOGLOBIN 0.3 % (0.5-1.5); BG DEOXYHEMOGLOBIN 1.7 % (0.0-5.0); BG FLOW(L/min) 30.00 L/min; BG FRACTION INSPIRED OXYGEN 100; BG HCO3 ACT 20.1 mmol/L (21.0-28.0); BG METHEMOGLOBIN 0.0 % (0.5-1.5); BG OXYGEN SATURATION 98.3 % (94.0-98.0); BG OXYHEMOGLOBIN 98.0 % (94.0-98.0); BG PCO2 28.7 mmHg (35.0-48.0); BG PH 7.464 (7.350-7.450); BG PO2 108.8 mmHg (83.0-108.0); BG SAMPLE SITE RIGHT RADIAL; BG TOTAL HEMOGLOBIN 10.8 g/dL (13.5-17.5); BG VENT MODE HIGH FLOW
[2024-12-30] MEDS: FAMOTIDINE 20MG/2ML VIAL IV SCH (10:52)
[2024-12-30 10:59] LABS: PROTEIN TOTAL 8.0 g/dL (6.0-8.3)
[2024-12-30] MEDS ORDERED: PENICILLIN POTASSIUM IV SCH (12:00)
[2024-12-30] MEDS ORDERED: SODIUM CHLORIDE IV SCH (12:00)
[2024-12-30] MEDS: SODIUM ZIRCONIUM CYCLOSILICATE 10GM/PACKET PO SCH (13:16)
[2024-12-30] MEDS: PENICILLIN POTASSIUM IV SCH (13:17)
[2024-12-30] MEDS: SODIUM CHLORIDE IV SCH (13:17)
[2024-12-30 14:16] LABS: BAND% 16.0 % (1.0-6.0); LYMPHOCYTES % MANUAL 4.0 % (20.0-50.0); MONOCYTES % MANUAL 9.0 % (2.0-8.0); NEUTROPHILS % MANUAL 71.0 % (45.0-75.0); PLATELET ESTIMATE NORMAL
[2024-12-30] MEDS: SODIUM CHLORIDE 3% 500 ML IV ONE (14:50)
[2024-12-30] MEDS: METRONIDAZOLE 500 MG PREMIX 100 ML IV SCH (18:16)
[2024-12-30 18:22] LABS: CREATININE 0.9 mg/dL (0.6-1.3); UREA NITROGEN BLOOD 17 mg/dL (9-23)
[2024-12-30] MEDS: CALCIUM CHLORIDE 1GM/10ML SYR IV SCH (20:34)
[2024-12-30] MEDS: DEXTROSE 50% WATER 50ML SYRINGE IV SCH (20:35)
[2024-12-30] MEDS: INSULIN REGULAR (HUMULIN R) 1000UNITS/10ML VIAL IV SCH (20:36)
[2024-12-30] MEDS ORDERED: ALBUTEROL (0.5%) 2.5MG/0.5ML NEB HHN ONE (21:00)
[2024-12-30] MEDS: CEFTRIAXONE 2GM/50ML 50 ML IV SCH (21:02)
[2024-12-30] MEDS: ALBUTEROL (0.083%) 2.5MG/3ML NEB HHN SCH (21:04)
[2024-12-31] VITALS (17 sets, daily range): BP systolic 102–128; BP diastolic 63–93; PULSE 90–121; RESP 15–24; TEMP 36.8–37.5; O2SAT 95–100
[2024-12-31 06:58] LABS: UREA NITROGEN BLOOD 18 mg/dL (9-23)
[2024-12-31 07:00] LABS: CREATININE 0.8 mg/dL (0.6-1.3); HEMATOCRIT. 27.6 % (42.0-52.0); HEMOGLOBIN. 9.5 g/dL (14.0-18.0); MEAN PLATELET VOLUME 7.5 fl (7.4-10.4); PLATELET 291 x1000/uL (130-400); RED BLOOD CELL COUNT 3.17 mill/uL (4.7-6.1); RED CELL DISTRIBUTION WIDTH 13.5 % (11.6-14.6)
[2024-12-31 07:02] LABS: ASPARTATE AMINOTRANSFERASE 82 IU/L (<34); BILIRUBIN DIRECT 0.1 mg/dL (<=3.0)
[2024-12-31 07:03] LABS: BILIRUBIN TOTAL 0.3 mg/dL (0.1-1.0); PHOSPHORUS 3.7 mg/dL (2.5-4.9); PROTEIN TOTAL 7.3 g/dL (6.0-8.3)
[2024-12-31 08:39] LABS: ASPARTATE AMINOTRANSFERASE 84 IU/L (<34); BILIRUBIN DIRECT 0.1 mg/dL (<=3.0); BILIRUBIN TOTAL 0.3 mg/dL (0.1-1.0); PROTEIN TOTAL 7.3 g/dL (6.0-8.3)
[2024-12-31] MEDS: MAGNESIUM 2 G PREMIX 50 ML IV SCH (09:44)
[2024-12-31 10:53] LABS: BG BASE EXCESS -3.8 mmol/L (-2.0-3.0); BG CARBOXYHEMOGLOBIN 0.3 % (0.5-1.5); BG DEOXYHEMOGLOBIN 5.1 % (0.0-5.0); BG FLOW(L/min) 5.00 L/min; BG FRACTION INSPIRED OXYGEN 40; BG HCO3 ACT 19.3 mmol/L (21.0-28.0); BG METHEMOGLOBIN 0.3 % (0.5-1.5); BG OXYGEN SATURATION 94.9 % (94.0-98.0); BG OXYHEMOGLOBIN 94.3 % (94.0-98.0); BG PCO2 28.9 mmHg (35.0-48.0); BG PH 7.443 (7.350-7.450); BG PO2 73.3 mmHg (83.0-108.0); BG SAMPLE SITE RIGHT RADIAL; BG TOTAL HEMOGLOBIN 10.6 g/dL (13.5-17.5); BG VENT MODE NASAL CANNULA
[2024-12-31] MEDS: SODIUM CHLORIDE 0.9% 1,000 ML IV SCH (13:53)
[2024-12-31 16:03] LABS: HEPATITIS A AB IGM NEGATIVE (Negative)
[2024-12-31 16:04] LABS: HEPATITIS C AB NON REACTIVE (Neg) (Negative)
[2024-12-31 16:06] LABS: HEPATITIS B CORE AB IGM NEGATIVE (Negative)
[2024-12-31 16:32] LABS: BAND% 6.0 % (1.0-6.0); LYMPHOCYTES % MANUAL 4.0 % (20.0-50.0); MONOCYTES % MANUAL 3.0 % (2.0-8.0); NEUTROPHILS % MANUAL 87.0 % (45.0-75.0); PLATELET ESTIMATE NORMAL
[2024-12-31] MEDS: KETOROLAC 30MG/ML VIAL IV NR (18:36)
[2025-01-01] VITALS (17 sets, daily range): BP systolic 104–131; BP diastolic 65–101; PULSE 86–108; RESP 15–20; TEMP 36.2–37.3; O2SAT 96–100
[2025-01-01 06:26] LABS: CREATININE 0.8 mg/dL (0.6-1.3)
[2025-01-01 06:27] LABS: UREA NITROGEN BLOOD 22 mg/dL (9-23)
[2025-01-01 06:28] LABS: ASPARTATE AMINOTRANSFERASE 53 IU/L (<34)
[2025-01-01 06:29] LABS: BILIRUBIN DIRECT 0.1 mg/dL (<=3.0); BILIRUBIN TOTAL 0.3 mg/dL (0.1-1.0); PHOSPHORUS 3.9 mg/dL (2.5-4.9); PROTEIN TOTAL 7.2 g/dL (6.0-8.3)
[2025-01-01 07:25] LABS: PLATELET 347 x1000/uL (130-400); RED BLOOD CELL COUNT 2.91 mill/uL (4.7-6.1); RED CELL DISTRIBUTION WIDTH 14.1 % (11.6-14.6)
[2025-01-01] MEDS ORDERED: NON FORMULARY MED XX SCH (10:30)
[2025-01-01] MEDS ORDERED: HYDRALAZINE 20MG/ML VIAL IV PRN (10:45)
[2025-01-01] MEDS: PANTOPRAZOLE SODIUM 40 MG/VIAL IV SCH (11:38)
[2025-01-01] MEDS: IRON SUCROSE COMPLEX 100 MG/5 ML ML IV SCH (11:39)
[2025-01-02] VITALS (15 sets, daily range): BP systolic 115–126; BP diastolic 76–89; PULSE 77–97; RESP 13–17; TEMP 36.2–36.5; O2SAT 96–99
[2025-01-02] MEDS: METRONIDAZOLE 500MG TABLET PO SCH (05:15)
[2025-01-02 06:12] LABS: HBSAG SCREEN Confirm. indicated (Negative)
[2025-01-02 06:19] LABS: INR 1.0
[2025-01-02 06:24] LABS: HEMATOCRIT. 29.7 % (42.0-52.0); HEMOGLOBIN. 10.1 g/dL (14.0-18.0); MEAN PLATELET VOLUME 6.9 fl (7.4-10.4); PLATELET 436 x1000/uL (130-400); RED BLOOD CELL COUNT 3.35 mill/uL (4.7-6.1); RED CELL DISTRIBUTION WIDTH 14.0 % (11.6-14.6)
[2025-01-02 06:27] LABS: CREATININE 0.7 mg/dL (0.6-1.3); UREA NITROGEN BLOOD 18 mg/dL (9-23)
[2025-01-02 06:29] LABS: FOLIC ACID (FOLATE) SERUM 3.72 ng/mL (>5.38); PHOSPHORUS 3.2 mg/dL (2.5-4.9)
[2025-01-02 06:30] LABS: VITAMIN B12 SERUM 1883 pg/mL (211-911)
[2025-01-02 09:07] LABS: HBSAG CONFIRMATION Positive (.)
[2025-01-02 09:53] LABS: ASPARTATE AMINOTRANSFERASE 63 IU/L (<34); BILIRUBIN DIRECT < 0.1 mg/dL (<=3.0)
[2025-01-02 09:54] LABS: BILIRUBIN TOTAL 0.2 mg/dL (0.1-1.0); PROTEIN TOTAL 6.9 g/dL (6.0-8.3)
[2025-01-02] MEDS: MAGNESIUM GLUCONATE 500MG TABLET PO SCH (11:26)
[2025-01-02] MEDS: MAGNESIUM 2 G PREMIX 50 ML IV NR (11:26)
[2025-01-03] VITALS (15 sets, daily range): BP systolic 118–130; BP diastolic 81–102; PULSE 69–91; RESP 11–17; TEMP 36.2–36.6; O2SAT 95–99
[2025-01-03 06:26] LABS: HEMATOCRIT. 27.0 % (42.0-52.0); HEMOGLOBIN. 9.2 g/dL (14.0-18.0); MEAN PLATELET VOLUME 6.7 fl (7.4-10.4); PLATELET 502 x1000/uL (130-400); RED BLOOD CELL COUNT 3.11 mill/uL (4.7-6.1); RED CELL DISTRIBUTION WIDTH 13.9 % (11.6-14.6)
[2025-01-03 06:27] LABS: INR 1.1
[2025-01-03 06:32] LABS: CREATININE 0.7 mg/dL (0.6-1.3); UREA NITROGEN BLOOD 17 mg/dL (9-23)
[2025-01-03 08:58] LABS: ASPARTATE AMINOTRANSFERASE 64 IU/L (<34); BILIRUBIN DIRECT < 0.1 mg/dL (<=3.0)
[2025-01-03 08:59] LABS: BILIRUBIN TOTAL 0.2 mg/dL (0.1-1.0); PROTEIN TOTAL 7.5 g/dL (6.0-8.3)
[2025-01-03] MEDS: FERROUS SULFATE 300MG/5ML UDC NG SCH (11:42)
[2025-01-03 12:39] LABS: BAND% 5.0 % (1.0-6.0); LYMPHOCYTES % MANUAL 14.0 % (20.0-50.0); MONOCYTES % MANUAL 20.0 % (2.0-8.0); NEUTROPHILS % MANUAL 61.0 % (45.0-75.0)
[2025-01-03 12:41] LABS: PLATELET ESTIMATE INCREASED
[2025-01-03 13:45] LABS: BAND% 7.0 % (1.0-6.0); EOSINOPHILS % MANUAL 5.0 % (0.0-5.0); LYMPHOCYTES % MANUAL 4.0 % (20.0-50.0); MONOCYTES % MANUAL 8.0 % (2.0-8.0); NEUTROPHILS % MANUAL 76.0 % (45.0-75.0); PLATELET ESTIMATE INCREASED
[2025-01-04] VITALS (13 sets, daily range): BP systolic 117–149; BP diastolic 58–99; PULSE 68–97; RESP 11–20; TEMP 35.4–36.7; O2SAT 95–100
[2025-01-04 06:42] LABS: HEMATOCRIT. 26.4 % (42.0-52.0); HEMOGLOBIN. 9.3 g/dL (14.0-18.0); MEAN PLATELET VOLUME 6.8 fl (7.4-10.4); PLATELET 492 x1000/uL (130-400); RED BLOOD CELL COUNT 3.03 mill/uL (4.7-6.1); RED CELL DISTRIBUTION WIDTH 14.2 % (11.6-14.6)
[2025-01-04 06:54] LABS: INR 1.1
[2025-01-04 07:29] LABS: BILIRUBIN DIRECT < 0.1 mg/dL (<=3.0)
[2025-01-04 07:30] LABS: ASPARTATE AMINOTRANSFERASE 64 IU/L (<34); BILIRUBIN TOTAL < 0.2 mg/dL (0.1-1.0); PROTEIN TOTAL 6.9 g/dL (6.0-8.3)
[2025-01-04 07:45] LABS: CREATININE 0.6 mg/dL (0.6-1.3); UREA NITROGEN BLOOD 17 mg/dL (9-23)
[2025-01-04 07:47] LABS: PHOSPHORUS 3.2 mg/dL (2.5-4.9)
[2025-01-04] MEDS ORDERED: PENICILLIN G BENZATHINE 2,400,000 UNITS/4ML SYR IM SCH (09:00)
[2025-01-04] MEDS ORDERED: SIMETHICONE 40 MG/0.6 ML 15ML ONE (10:18)
[2025-01-04 11:14] LABS: BAND% 25.0 % (1.0-6.0); EOSINOPHILS % MANUAL 2.0 % (0.0-5.0); LYMPHOCYTES % MANUAL 8.0 % (20.0-50.0); MONOCYTES % MANUAL 17.0 % (2.0-8.0); NEUTROPHILS % MANUAL 48.0 % (45.0-75.0)
[2025-01-04 11:16] LABS: PLATELET ESTIMATE INCREASED
[2025-01-04] MEDS ORDERED: DEXTROSE 50% WATER 50ML SYRINGE IV ONE (11:27)
[2025-01-04] MEDS ORDERED: PROPOFOL 200MG/20ML VIAL IV ONE (11:33)
[2025-01-04] MEDS ORDERED: GLYCOPYRROLATE 0.2 MG/ML 2ML VIAL IV PRN (12:00)
[2025-01-04] MEDS ORDERED: HYDRALAZINE 20MG/ML VIAL IV PRN (12:00)
[2025-01-04] MEDS ORDERED: DEXAMETHASONE 4MG/ML 1ML VIAL IV PRN (12:00)
[2025-01-04] MEDS ORDERED: ONDANSETRON HCL 4MG/2ML INJ IV PRN (12:00)
[2025-01-04] MEDS: HYDROMORPHONE HCL/PF 1MG/ML INJ IV PRN (17:09)
[2025-01-05] VITALS (12 sets, daily range): BP systolic 110–127; BP diastolic 78–94; PULSE 77–90; RESP 13–19; TEMP 35.9–36.9; O2SAT 95–100
[2025-01-05] MEDS: METOCLOPRAMIDE HCL 10MG/2ML VIAL IV SCH (06:11)
[2025-01-06] VITALS (13 sets, daily range): BP systolic 116–136; BP diastolic 82–94; PULSE 76–99; RESP 13–20; TEMP 36.6–36.9; O2SAT 97–100
[2025-01-06] MEDS: ATORVASTATIN CALCIUM 40MG TABLET PO SCH (23:17)
[2025-01-07] VITALS (13 sets, daily range): BP systolic 118–144; BP diastolic 79–97; PULSE 72–95; RESP 14–19; TEMP 36.2–36.7; O2SAT 95–100
[2025-01-07 07:27] LABS: CREATININE 0.6 mg/dL (0.6-1.3)
[2025-01-07 07:30] LABS: UREA NITROGEN BLOOD 12 mg/dL (9-23)
[2025-01-07 07:32] LABS: PHOSPHORUS 3.1 mg/dL (2.5-4.9)
[2025-01-07 10:54] LABS: HEMATOCRIT. 27.9 % (42.0-52.0); HEMOGLOBIN. 9.5 g/dL (14.0-18.0); MEAN PLATELET VOLUME 6.7 fl (7.4-10.4); PLATELET 402 x1000/uL (130-400); RED BLOOD CELL COUNT 3.18 mill/uL (4.7-6.1); RED CELL DISTRIBUTION WIDTH 14.5 % (11.6-14.6)
[2025-01-07 11:16] LABS: CREATININE 0.6 mg/dL (0.6-1.3)
[2025-01-07 11:17] LABS: UREA NITROGEN BLOOD 13 mg/dL (9-23)
[2025-01-07] MEDS: SODIUM ZIRCONIUM CYCLOSILICATE 10GM/PACKET PO NR (12:15)
[2025-01-07 14:06] LABS: BAND% 3.0 % (1.0-6.0); EOSINOPHILS % MANUAL 2.0 % (0.0-5.0); LYMPHOCYTES % MANUAL 15.0 % (20.0-50.0); METAMYELOCYTES % 1.0 % (0-0); MONOCYTES % MANUAL 14.0 % (2.0-8.0); NEUTROPHILS % MANUAL 65.0 % (45.0-75.0); PLATELET ESTIMATE SLIGHTLY INCREASED
[2025-01-08] VITALS (15 sets, daily range): BP systolic 110–131; BP diastolic 75–94; PULSE 66–94; RESP 15–20; TEMP 36.1–36.4; O2SAT 97–100
[2025-01-08 15:07] LABS: CREATININE 0.6 mg/dL (0.6-1.3); UREA NITROGEN BLOOD 15 mg/dL (9-23)
[2025-01-08] MEDS: SODIUM ZIRCONIUM CYCLOSILICATE 10GM/PACKET PO NR (23:04)
[2025-01-09] VITALS (12 sets, daily range): BP systolic 99–143; BP diastolic 73–97; PULSE 70–95; RESP 13–17; TEMP 35.9–37.2; O2SAT 96–100
[2025-01-09] MEDS ORDERED: CLONIDINE 0.1MG TABLET PO PRN (04:15)
[2025-01-09] MEDS ORDERED: ONDANSETRON HCL 4MG/2ML INJ IV PRN (04:15)
[2025-01-09] MEDS ORDERED: GUAIFENESIN 200MG/10ML SUGAR FREE UDC PO PRN (04:15)
[2025-01-09] MEDS ORDERED: IPRATROPIUM/ALBUTEROL 0.5-3(2.5)MG/3ML NEB HHN PRN (04:15)
[2025-01-09] MEDS ORDERED: ACETAMINOPHEN 325MG TABLET PO PRN (04:30)
[2025-01-09] MEDS ORDERED: PANTOPRAZOLE SODIUM 40 MG/VIAL IV SCH (09:00)
[2025-01-09] MEDS: BLOOD SUGAR DIAGNOSTIC STRIP TEST SCH (09:20)
[2025-01-09] MEDS: SODIUM ZIRCONIUM CYCLOSILICATE 10GM/PACKET PO NR (12:36)
[2025-01-09 14:07] LABS: CREATININE 0.5 mg/dL (0.6-1.3); UREA NITROGEN BLOOD 14 mg/dL (9-23)
[2025-01-09] MEDS: HYDROXYZINE 25MG TABLET PO PRN (14:44)
[2025-01-09] MEDS ORDERED: ATORVASTATIN CALCIUM 40MG TABLET PO SCH (21:00)
[2025-01-10] VITALS (19 sets, daily range): BP systolic 108–139; BP diastolic 78–99; PULSE 62–86; RESP 12–17; TEMP 35.8–36.5; O2SAT 98–100
[2025-01-10] MEDS: RISPERIDONE 0.25MG TABLET PO SCH (21:13)
[2025-01-11] VITALS (18 sets, daily range): BP systolic 102–126; BP diastolic 75–89; PULSE 63–76; RESP 12–16; TEMP 35.6–36.6; O2SAT 99–100
[2025-01-11 08:04] LABS: CREATININE 0.5 mg/dL (0.6-1.3)
[2025-01-11 08:06] LABS: UREA NITROGEN BLOOD 14 mg/dL (9-23)
[2025-01-11 08:08] LABS: PHOSPHORUS 2.4 mg/dL (2.5-4.9)
[2025-01-11] MEDS: DEMECLOCYCLINE HCL 300MG TABLET PO SCH (11:17)
[2025-01-11] MEDS: MAGNESIUM 2 G PREMIX 50 ML IV NR (11:17)
[2025-01-11] MEDS: SODIUM ZIRCONIUM CYCLOSILICATE 10GM/PACKET PO NR (11:17)
[2025-01-11] MEDS: SODIUM PHOSPHATE 20 MMOL in DEXT 5% WATER 243.3333 ML IV NR (14:24)
[2025-01-12] VITALS (14 sets, daily range): BP systolic 97–132; BP diastolic 55–80; PULSE 74–127; RESP 15–40; TEMP 34.4–37.3; O2SAT 91–99
[2025-01-12 07:37] LABS: BASOPHILS % 0.1 % (0.0-2.0); EOSINOPHILS % 1.3 % (0.0-5.0); HEMATOCRIT. 26.7 % (42.0-52.0); HEMOGLOBIN. 9.4 g/dL (14.0-18.0); LYMPHOCYTES % 7.2 % (20.0-50.0); MEAN PLATELET VOLUME 7.3 fl (7.4-10.4); MONOCYTES % 5.2 % (2.0-8.0); NEUTROPHILS % 86.2 % (40.0-76.0); PLATELET 234 x1000/uL (130-400); RED BLOOD CELL COUNT 3.05 mill/uL (4.7-6.1); RED CELL DISTRIBUTION WIDTH 14.3 % (11.6-14.6)
[2025-01-12 08:13] LABS: CREATININE 0.7 mg/dL (0.6-1.3); UREA NITROGEN BLOOD 17 mg/dL (9-23)
[2025-01-12] MEDS: SODIUM CHLORIDE 0.9% 1,000 ML IV SCH (09:02)
[2025-01-12] MEDS ORDERED: SODIUM POLYSTYRENE SULFONATE 15 G/60 ML BOT PO ONE (13:30)
[2025-01-12] MEDS: SODIUM ZIRCONIUM CYCLOSILICATE 10GM/PACKET PO SCH (13:46)
[2025-01-12] MEDS: SODIUM CHLORIDE 3% 250 ML IV SCH (14:01)
[2025-01-12 18:57] LABS: BG BASE EXCESS -2.4 mmol/L (-2.0-3.0); BG CARBOXYHEMOGLOBIN 0.4 % (0.5-1.5); BG DEOXYHEMOGLOBIN 2.0 % (0.0-5.0); BG FLOW(L/min) 15.00 L/min; BG HCO3 ACT 20.2 mmol/L (21.0-28.0); BG METHEMOGLOBIN 0.3 % (0.5-1.5); BG OXYGEN SATURATION 98.0 % (94.0-98.0); BG OXYHEMOGLOBIN 97.3 % (94.0-98.0); BG PCO2 27.7 mmHg (35.0-48.0); BG PH 7.481 (7.350-7.450); BG PO2 103.3 mmHg (83.0-108.0); BG SAMPLE SITE RIGHT RADIAL; BG TOTAL HEMOGLOBIN 10.3 g/dL (13.5-17.5); BG VENT MODE MASK - NRB
[2025-01-12] MEDS: METHYLPREDNISOLONE SOD SUCC 125MG/2ML (ACT-O-VIAL) IV NR (19:40)
[2025-01-12] MEDS ORDERED: PHENYLEPHRINE 50MG/250ML PMX 250 ML IV PRN (22:45)
[2025-01-12] MEDS: PROPOFOL 10MG/ML 100ML 100 ML IV PRN (23:30)
[2025-01-13] VITALS (104 sets, daily range): BP systolic 92–132; BP diastolic 65–91; PULSE 87–117; RESP 15–24; TEMP 36.1–37.3; O2SAT 96–100
[2025-01-13 00:34] LABS: BG BASE EXCESS -3.9 mmol/L (-2.0-3.0); BG CARBOXYHEMOGLOBIN 0.3 % (0.5-1.5); BG DEOXYHEMOGLOBIN 1.8 % (0.0-5.0); BG FRACTION INSPIRED OXYGEN 50; BG HCO3 ACT 20.4 mmol/L (21.0-28.0); BG METHEMOGLOBIN 0.1 % (0.5-1.5); BG OXYGEN SATURATION 98.2 % (94.0-98.0); BG OXYHEMOGLOBIN 97.8 % (94.0-98.0); BG PCO2 34.6 mmHg (35.0-48.0); BG PEEP (cmH2O) 5.0 cmH2O; BG PH 7.389 (7.350-7.450); BG PO2 114.8 mmHg (83.0-108.0); BG SAMPLE SITE RIGHT RADIAL; BG TIDAL VOLUME(mL) 450.0 mL; BG TOTAL HEMOGLOBIN 10.4 g/dL (13.5-17.5); BG VENT MODE VENT - AC; BG VENT RATE 18.0 set
[2025-01-13 00:44] LABS: TROPONIN I HIGH SENSITIVITY 4 ng/L (3.0-53)
[2025-01-13 06:25] LABS: CREATININE 0.9 mg/dL (0.6-1.3); TRIGLYCERIDE 57 mg/dL (0-150); UREA NITROGEN BLOOD 25 mg/dL (9-23)
[2025-01-13 06:28] LABS: PHOSPHORUS 4.2 mg/dL (2.5-4.9)
[2025-01-13 06:29] LABS: T4 FREE 1.05 ng/dL (0.89-1.76)
[2025-01-13] MEDS ORDERED: SODIUM CHLORIDE 3% 500ML IV SOLN IV ONE (08:00)
[2025-01-13 08:48] LABS: BG BASE EXCESS -4.6 mmol/L (-2.0-3.0); BG CARBOXYHEMOGLOBIN 0.6 % (0.5-1.5); BG DEOXYHEMOGLOBIN 2.5 % (0.0-5.0); BG FRACTION INSPIRED OXYGEN 40; BG HCO3 ACT 19.1 mmol/L (21.0-28.0); BG METHEMOGLOBIN 0.1 % (0.5-1.5); BG OXYGEN SATURATION 97.5 % (94.0-98.0); BG OXYHEMOGLOBIN 96.8 % (94.0-98.0); BG PCO2 30.8 mmHg (35.0-48.0); BG PEEP (cmH2O) 5.0 cmH2O; BG PH 7.410 (7.350-7.450); BG PO2 96.9 mmHg (83.0-108.0); BG SAMPLE SITE RIGHT RADIAL; BG TIDAL VOLUME(mL) 450.0 mL; BG TOTAL HEMOGLOBIN 11.7 g/dL (13.5-17.5); BG VENT MODE VENT - AC; BG VENT RATE 18.0 set
[2025-01-13] MEDS: CITRIC ACID/SODIUM CITRATE SOLN 30ML UDC PO SCH (09:14)
[2025-01-13] MEDS: SODIUM ZIRCONIUM CYCLOSILICATE 10GM/PACKET PO SCH (09:15)
[2025-01-13] MEDS: SODIUM CHLORIDE 3% 150 ML IV SCH (09:16)
[2025-01-13 12:35] LABS: PLATELET 202 x1000/uL (130-400); RED BLOOD CELL COUNT 2.91 mill/uL (4.7-6.1); RED CELL DISTRIBUTION WIDTH 14.6 % (11.6-14.6)
[2025-01-13] MEDS ORDERED: IOHEXOL-300 100 ML BOTTLE ONE (23:05)
[2025-01-14] VITALS (92 sets, daily range): BP systolic 97–122; BP diastolic 67–82; PULSE 74–112; RESP 11–26; TEMP 36.1–36.5; O2SAT 96–100
[2025-01-14 06:11] LABS: HEMATOCRIT. 25.8 % (42.0-52.0); HEMOGLOBIN. 9.0 g/dL (14.0-18.0); MEAN PLATELET VOLUME 7.2 fl (7.4-10.4); PLATELET 181 x1000/uL (130-400); RED BLOOD CELL COUNT 2.89 mill/uL (4.7-6.1); RED CELL DISTRIBUTION WIDTH 14.9 % (11.6-14.6)
[2025-01-14 06:23] LABS: CREATININE 0.9 mg/dL (0.6-1.3)
[2025-01-14 06:24] LABS: UREA NITROGEN BLOOD 29 mg/dL (9-23)
[2025-01-14 09:20] LABS: BG BASE EXCESS -1.8 mmol/L (-2.0-3.0); BG CARBOXYHEMOGLOBIN 0.2 % (0.5-1.5); BG DEOXYHEMOGLOBIN 0.9 % (0.0-5.0); BG FRACTION INSPIRED OXYGEN 40; BG HCO3 ACT 23.0 mmol/L (21.0-28.0); BG METHEMOGLOBIN 0.1 % (0.5-1.5); BG OXYGEN SATURATION 99.1 % (94.0-98.0); BG OXYHEMOGLOBIN 98.8 % (94.0-98.0); BG PCO2 38.7 mmHg (35.0-48.0); BG PEEP (cmH2O) 10.0 cmH2O; BG PH 7.391 (7.350-7.450); BG PO2 155.3 mmHg (83.0-108.0); BG SAMPLE SITE RIGHT RADIAL; BG TIDAL VOLUME(mL) 500.0 mL; BG TOTAL HEMOGLOBIN 10.2 g/dL (13.5-17.5); BG VENT MODE VENT - AC; BG VENT RATE 20.0 set
[2025-01-14 11:48] LABS: BAND% 3.0 % (1.0-6.0); EOSINOPHILS % MANUAL 1.0 % (0.0-5.0); LYMPHOCYTES % MANUAL 2.0 % (20.0-50.0); MONOCYTES % MANUAL 3.0 % (2.0-8.0); NEUTROPHILS % MANUAL 91.0 % (45.0-75.0); PLATELET ESTIMATE NORMAL
[2025-01-14] MEDS: ACETAMINOPHEN 325MG TABLET PO PRN (17:58)
[2025-01-15] VITALS (85 sets, daily range): BP systolic 91–126; BP diastolic 65–89; PULSE 68–92; RESP 11–30; TEMP 36.2–36.7; O2SAT 95–100
[2025-01-15 06:52] LABS: BASOPHILS % 0.1 % (0.0-2.0); EOSINOPHILS % 0.6 % (0.0-5.0); HEMATOCRIT. 27.5 % (42.0-52.0); HEMOGLOBIN. 9.6 g/dL (14.0-18.0); LYMPHOCYTES % 7.4 % (20.0-50.0); MEAN PLATELET VOLUME 7.7 fl (7.4-10.4); MONOCYTES % 9.1 % (2.0-8.0); NEUTROPHILS % 82.8 % (40.0-76.0); PLATELET 169 x1000/uL (130-400); RED BLOOD CELL COUNT 3.01 mill/uL (4.7-6.1); RED CELL DISTRIBUTION WIDTH 15.5 % (11.6-14.6)
[2025-01-15 06:54] LABS: CREATININE 0.9 mg/dL (0.6-1.3); UREA NITROGEN BLOOD 29 mg/dL (9-23)
[2025-01-15 09:43] LABS: BG BASE EXCESS -0.5 mmol/L (-2.0-3.0); BG CARBOXYHEMOGLOBIN 0.4 % (0.5-1.5); BG DEOXYHEMOGLOBIN 1.5 % (0.0-5.0); BG FRACTION INSPIRED OXYGEN 40; BG HCO3 ACT 23.2 mmol/L (21.0-28.0); BG METHEMOGLOBIN 0.1 % (0.5-1.5); BG OXYGEN SATURATION 98.5 % (94.0-98.0); BG OXYHEMOGLOBIN 98.0 % (94.0-98.0); BG PCO2 34.3 mmHg (35.0-48.0); BG PEEP (cmH2O) 10.0 cmH2O; BG PH 7.448 (7.350-7.450); BG PO2 116.9 mmHg (83.0-108.0); BG SAMPLE SITE RIGHT RADIAL; BG TIDAL VOLUME(mL) 500.0 mL; BG TOTAL HEMOGLOBIN 10.2 g/dL (13.5-17.5); BG TOTAL RESPIRATORY RATE 23 b/min; BG VENT MODE VENT - AC; BG VENT RATE 20.0 set
[2025-01-15 13:09] LABS: BG BASE EXCESS 1.0 mmol/L (-2.0-3.0); BG CARBOXYHEMOGLOBIN 0.3 % (0.5-1.5); BG DEOXYHEMOGLOBIN 0.7 % (0.0-5.0); BG FRACTION INSPIRED OXYGEN 40; BG HCO3 ACT 24.9 mmol/L (21.0-28.0); BG METHEMOGLOBIN 0.3 % (0.5-1.5); BG OXYGEN SATURATION 99.3 % (94.0-98.0); BG OXYHEMOGLOBIN 98.7 % (94.0-98.0); BG PCO2 37.2 mmHg (35.0-48.0); BG PEEP (cmH2O) 5.0 cmH2O; BG PH 7.444 (7.350-7.450); BG PO2 160.1 mmHg (83.0-108.0); BG SAMPLE SITE RIGHT RADIAL; BG TOTAL HEMOGLOBIN 10.5 g/dL (13.5-17.5); BG VENT MODE VENT - CPAP
[2025-01-16] VITALS (64 sets, daily range): BP systolic 98–126; BP diastolic 65–87; PULSE 68–88; RESP 11–20; TEMP 36.1–37.2; O2SAT 94–100
[2025-01-16 05:32] LABS: PLATELET 139 x1000/uL (130-400); RED BLOOD CELL COUNT 3.39 mill/uL (4.7-6.1); RED CELL DISTRIBUTION WIDTH 15.7 % (11.6-14.6)
[2025-01-16 05:39] LABS: CREATININE 0.7 mg/dL (0.6-1.3)
[2025-01-16 05:40] LABS: UREA NITROGEN BLOOD 17 mg/dL (9-23)
[2025-01-17] VITALS (7 sets, daily range): BP systolic 110–129; BP diastolic 69–81; PULSE 69–93; RESP 13–19; TEMP 36.2–37.2; O2SAT 95–100
[2025-01-18] VITALS: BP 121/84; PULSE 83; RESP 20; TEMP 36.3; O2SAT 97
[2025-01-18 04:00] VITALS: BP 127/85; PULSE 91; RESP 20; TEMP 36.8; O2SAT 96
[2025-01-18 08:00] VITALS: BP 114/85; PULSE 94; RESP 16; TEMP 36.4; O2SAT 95
[2025-01-18 12:00] VITALS: BP 113/79; PULSE 80; RESP 17; TEMP 36.5; O2SAT 100
[2025-01-18 16:00] VITALS: BP 110/73; PULSE 100; RESP 17; TEMP 36.7; O2SAT 100
[2025-01-18 20:00] VITALS: BP 121/82; PULSE 96; RESP 18; TEMP 36.4; O2SAT 96
[2025-01-19] VITALS: BP 106/70; PULSE 82; RESP 18; TEMP 36.3; O2SAT 97
[2025-01-19 04:00] VITALS: BP 110/63; PULSE 80; RESP 18; TEMP 36.6; O2SAT 97
[2025-01-19 08:00] VITALS: BP 115/79; PULSE 77; RESP 18; TEMP 36.5; O2SAT 97
[2025-01-19 12:00] VITALS: BP 113/80; PULSE 86; RESP 18; TEMP 36.6; O2SAT 100
[2025-01-19 16:00] VITALS: BP 111/82; PULSE 64; RESP 18; TEMP 36.6; O2SAT 97
[2025-01-19 20:00] VITALS: BP 114/82; PULSE 102; RESP 17; TEMP 36.4; O2SAT 98
[2025-01-20] VITALS: BP 109/73; PULSE 78; RESP 18; TEMP 36.3; O2SAT 100
[2025-01-20 04:00] VITALS: BP 111/74; PULSE 89; RESP 18; TEMP 36.3; O2SAT 100
[2025-01-20 09:00] VITALS: BP 117/78; PULSE 84; RESP 18; TEMP 36.2; O2SAT 100
[2025-01-20 12:00] VITALS: BP 112/80; PULSE 73; RESP 18; TEMP 36.4; O2SAT 100
[2025-01-20 16:00] VITALS: BP 106/70; PULSE 80; RESP 18; TEMP 36.4; O2SAT 100
[2025-01-20 17:17] LABS: BASOPHILS % 0.3 % (0.0-2.0); EOSINOPHILS % 5.2 % (0.0-5.0); HEMATOCRIT. 30.4 % (42.0-52.0); HEMOGLOBIN. 9.9 g/dL (14.0-18.0); LYMPHOCYTES % 14.1 % (20.0-50.0); MEAN PLATELET VOLUME 7.3 fl (7.4-10.4); MONOCYTES % 10.4 % (2.0-8.0); NEUTROPHILS % 70.0 % (40.0-76.0); PLATELET 153 x1000/uL (130-400); RED BLOOD CELL COUNT 3.19 mill/uL (4.7-6.1); RED CELL DISTRIBUTION WIDTH 18.9 % (11.6-14.6)
[2025-01-20 17:40] LABS: CREATININE 0.9 mg/dL (0.6-1.3)
[2025-01-20 17:41] LABS: UREA NITROGEN BLOOD 24 mg/dL (9-23)
[2025-01-20 17:43] LABS: PHOSPHORUS 3.3 mg/dL (2.5-4.9)
[2025-01-20 20:00] VITALS: BP 112/84; PULSE 89; RESP 18; TEMP 36.3; O2SAT 97
[2025-01-21] VITALS: BP 114/71; PULSE 82; RESP 18; TEMP 36.1; O2SAT 97
[2025-01-21 04:00] VITALS: BP 112/75; PULSE 88; RESP 18; TEMP 36; O2SAT 95
[2025-01-21 06:27] LABS: BASOPHILS % 0.3 % (0.0-2.0); EOSINOPHILS % 3.8 % (0.0-5.0); HEMATOCRIT. 32.1 % (42.0-52.0); HEMOGLOBIN. 10.9 g/dL (14.0-18.0); LYMPHOCYTES % 14.7 % (20.0-50.0); MEAN PLATELET VOLUME 7.9 fl (7.4-10.4); MONOCYTES % 9.7 % (2.0-8.0); NEUTROPHILS % 71.5 % (40.0-76.0); PLATELET 139 x1000/uL (130-400); RED BLOOD CELL COUNT 3.36 mill/uL (4.7-6.1); RED CELL DISTRIBUTION WIDTH 18.3 % (11.6-14.6)
[2025-01-21 06:30] LABS: CREATININE 0.9 mg/dL (0.6-1.3); UREA NITROGEN BLOOD 21 mg/dL (9-23)
[2025-01-21 06:33] LABS: PHOSPHORUS 3.6 mg/dL (2.5-4.9)
[2025-01-21 08:00] VITALS: BP 122/86; PULSE 71; RESP 17; TEMP 36.3; O2SAT 97
[2025-01-21 12:00] VITALS: BP 130/79; PULSE 72; RESP 18; TEMP 36.2; O2SAT 97
[2025-01-21 16:00] VITALS: BP 131/90; PULSE 91; RESP 18; TEMP 36.2; O2SAT 98
[2025-01-21 20:00] VITALS: BP 135/88; PULSE 101; RESP 19; TEMP 36.3; O2SAT 96
[2025-01-21] MEDS: MAGNESIUM GLUCONATE 500MG TABLET PO SCH (20:56)
[2025-01-22] VITALS: BP 111/75; PULSE 75; RESP 19; TEMP 36.3; O2SAT 96
[2025-01-22 04:00] VITALS: BP 117/81; PULSE 84; RESP 19; TEMP 36; O2SAT 97
[2025-01-22 12:00] VITALS: BP 115/77; PULSE 70; RESP 18; TEMP 35.9; O2SAT 98
[2025-01-22 16:00] VITALS: BP 129/91; PULSE 87; RESP 17; TEMP 36.4; O2SAT 99
[2025-01-22 20:00] VITALS: BP 111/74; PULSE 85; RESP 19; TEMP 36.1; O2SAT 98
[2025-01-23] VITALS: BP 133/60; PULSE 70; RESP 19; TEMP 36.5; O2SAT 98
[2025-01-23 04:00] VITALS: BP 113/79; PULSE 78; RESP 16; TEMP 36.9; O2SAT 98
[2025-01-23 08:00] VITALS: BP 118/80; PULSE 103; RESP 20; TEMP 36; O2SAT 100
[2025-01-23 12:00] VITALS: BP 120/79; PULSE 96; RESP 20; TEMP 36.2; O2SAT 100
[2025-01-23 16:00] VITALS: BP 122/82; PULSE 100; RESP 20; TEMP 36.1; O2SAT 100
[2025-01-23 20:00] VITALS: BP 115/79; PULSE 109; RESP 16; TEMP 36.3; O2SAT 96
[2025-01-24] VITALS: BP 122/85; PULSE 73; RESP 20; TEMP 36.7; O2SAT 99
[2025-01-24 04:00] VITALS: BP 109/66; PULSE 106; RESP 18; TEMP 36.3; O2SAT 97
[2025-01-24 08:00] VITALS: BP 119/79; PULSE 101; RESP 17; TEMP 36.4; O2SAT 95
[2025-01-24 12:00] VITALS: BP 116/73; PULSE 81; RESP 17; TEMP 36.4; O2SAT 98
[2025-01-24 16:00] VITALS: BP 118/80; PULSE 111; RESP 18; TEMP 36.4; O2SAT 95
[2025-01-24 20:00] VITALS: BP 118/81; PULSE 102; RESP 19; TEMP 36.4; O2SAT 97
[2025-01-24] MEDS: HEPARIN 5000 UNITS/ML VIAL SUBCUT SCH (22:21)
[2025-01-25] VITALS: BP 102/78; PULSE 75; RESP 16; TEMP 36.8; O2SAT 100
[2025-01-25 04:00] VITALS: BP 117/69; PULSE 61; RESP 19; TEMP 36.3; O2SAT 98
[2025-01-25 08:00] VITALS: BP 120/89; PULSE 100; RESP 19; TEMP 36.1; O2SAT 97
[2025-01-25 12:00] VITALS: BP 113/79; PULSE 95; RESP 18; TEMP 36.7; O2SAT 97
[2025-01-25 12:18] LABS: BASOPHILS % 0.2 % (0.0-2.0); EOSINOPHILS % 1.9 % (0.0-5.0); HEMATOCRIT. 33.5 % (42.0-52.0); HEMOGLOBIN. 10.8 g/dL (14.0-18.0); LYMPHOCYTES % 14.1 % (20.0-50.0); MEAN PLATELET VOLUME 7.9 fl (7.4-10.4); MONOCYTES % 7.0 % (2.0-8.0); NEUTROPHILS % 76.8 % (40.0-76.0); PLATELET 175 x1000/uL (130-400); RED BLOOD CELL COUNT 3.50 mill/uL (4.7-6.1); RED CELL DISTRIBUTION WIDTH 18.6 % (11.6-14.6)
[2025-01-25 12:33] LABS: CREATININE 1.1 mg/dL (0.6-1.3)
[2025-01-25 12:34] LABS: UREA NITROGEN BLOOD 37 mg/dL (9-23)
[2025-01-25 12:36] LABS: PHOSPHORUS 4.1 mg/dL (2.5-4.9)
[2025-01-25 16:00] VITALS: BP 114/83; PULSE 80; RESP 18; TEMP 36.6; O2SAT 96
[2025-01-25 20:00] VITALS: BP 117/77; PULSE 92; RESP 18; TEMP 36.2; O2SAT 100
[2025-01-26] VITALS (8 sets, daily range): BP systolic 112–134; BP diastolic 69–90; PULSE 79–112; RESP 18–20; TEMP 35.7–36.3; O2SAT 95–100
[2025-01-26] MEDS: MAGNESIUM GLUCONATE 500MG TABLET PO SCH (09:43)
[2025-01-26] MEDS: SULFAMETHOXAZOLE/TRIMETHOPRIM 400/80MG TAB PO SCH (10:30)
[2025-01-26] MEDS ORDERED: PENICILLIN G BENZATHINE 2,400,000 UNITS/4ML SYR IM NR (11:00)
[2025-01-26] MEDS ORDERED: PENICILLIN G BENZATHINE 2,400,000 UNITS/4ML SYR IM ONE (11:00)
[2025-01-27] VITALS: BP 128/78; PULSE 104; RESP 18; TEMP 35.6; O2SAT 95
[2025-01-27 04:00] VITALS: BP 122/82; PULSE 92; RESP 18; TEMP 35.9; O2SAT 96
[2025-01-27 08:00] VITALS: BP 115/88; PULSE 92; RESP 19; TEMP 36.1; O2SAT 98
[2025-01-27 12:00] VITALS: BP 113/77; PULSE 91; RESP 18; TEMP 36.1; O2SAT 97
[2025-01-27 16:00] VITALS: BP 120/100; PULSE 97; RESP 19; TEMP 36.1; O2SAT 97
[2025-01-27 20:00] VITALS: BP 136/79; PULSE 100; RESP 18; TEMP 36.2; O2SAT 99
[2025-01-28] VITALS: BP 119/81; PULSE 98; RESP 18; TEMP 35.9; O2SAT 96
[2025-01-28 04:00] VITALS: BP_SYST 124; BP_SYST 138; BP_DIAS 104; BP_DIAS 70; PULSE 101; RESP 18; TEMP 35.8; O2SAT 95
[2025-01-28 08:00] VITALS: BP 125/76; PULSE 85; RESP 16; TEMP 36.5; O2SAT 96
[2025-01-28 12:00] VITALS: BP 99/55; PULSE 87; RESP 16; TEMP 36.5; O2SAT 98
[2025-01-28 16:00] VITALS: BP 130/85; PULSE 90; RESP 17; TEMP 36.4; O2SAT 97
[2025-01-28 20:00] VITALS: BP 103/75; PULSE 101; RESP 18; TEMP 36.3; O2SAT 96
[2025-01-29] VITALS: BP 115/81; PULSE 101; RESP 18; TEMP 36.2; O2SAT 98
[2025-01-29 04:00] VITALS: BP 109/83; PULSE 93; RESP 18; TEMP 36.2; O2SAT 96
[2025-01-29 08:00] VITALS: BP 115/85; PULSE 60; RESP 19; TEMP 36.6; O2SAT 96
[2025-01-29 12:00] VITALS: BP 117/77; PULSE 65; RESP 18; TEMP 36.4; O2SAT 95
[2025-01-29 20:00] VITALS: BP 125/88; PULSE 87; RESP 20; TEMP 37.1; O2SAT 97
[2025-01-30] VITALS: BP 130/71; PULSE 82; RESP 16; TEMP 36.3; O2SAT 100
[2025-01-30 04:00] VITALS: BP 117/82; PULSE 86; RESP 19; TEMP 36.1; O2SAT 98
[2025-01-30 08:00] VITALS: BP 117/77; PULSE 81; RESP 18; TEMP 36.4; O2SAT 100
[2025-01-30 16:00] VITALS: BP 108/67; PULSE 60; RESP 18; TEMP 36.4; O2SAT 98
[2025-01-30 20:00] VITALS: BP 111/59; PULSE 75; RESP 16; TEMP 36.6; O2SAT 100
[2025-01-31] VITALS: BP 107/63; PULSE 70; RESP 19; TEMP 36.9; O2SAT 97
[2025-01-31 04:00] VITALS: BP 126/81; PULSE 86; RESP 20; TEMP 36.3; O2SAT 99
[2025-01-31 08:00] VITALS: BP 103/71; PULSE 79; RESP 18; TEMP 36.3; O2SAT 97
[2025-01-31 12:00] VITALS: BP 115/85; PULSE 75; RESP 19; TEMP 36.3; O2SAT 97
[2025-01-31 16:00] VITALS: BP 109/72; PULSE 88; RESP 18; TEMP 36.3; O2SAT 97
[2025-02-01] VITALS: BP 126/70; PULSE 71; RESP 17; TEMP 37.2; O2SAT 99
[2025-02-01 04:00] VITALS: BP 132/79; PULSE 81; RESP 16; TEMP 36.8; O2SAT 100
[2025-02-01 08:00] VITALS: BP 111/63; PULSE 78; RESP 17; TEMP 36.5; O2SAT 96
[2025-02-01 12:00] VITALS: BP 107/75; PULSE 80; RESP 18; TEMP 36.3; O2SAT 98
[2025-02-01 16:00] VITALS: BP 102/64; PULSE 90; RESP 18; TEMP 36.3; O2SAT 99
[2025-02-01 20:00] VITALS: BP 102/66; PULSE 74; RESP 18; TEMP 35; O2SAT 100
[2025-02-02] VITALS: BP 107/78; PULSE 80; RESP 19; TEMP 35; O2SAT 97
[2025-02-02 04:00] VITALS: BP 111/80; PULSE 78; RESP 18; TEMP 35.1; O2SAT 100
[2025-02-02 08:00] VITALS: BP 107/75; PULSE 80; RESP 17; TEMP 35.5; O2SAT 100
[2025-02-02 12:00] VITALS: BP 107/77; PULSE 76; RESP 17; TEMP 35.3; O2SAT 100
[2025-02-02 16:00] VITALS: BP 112/76; PULSE 75; RESP 17; TEMP 35.1; O2SAT 99
[2025-02-02 20:00] VITALS: BP 104/74; PULSE 92; RESP 18; TEMP 35.3; O2SAT 100
[2025-02-03] VITALS: BP 108/75; PULSE 57; RESP 19; TEMP 35.3; O2SAT 100
[2025-02-03 04:00] VITALS: BP 130/90; PULSE 82; RESP 19; TEMP 36.6; O2SAT 100
[2025-02-03 12:00] VITALS: BP 102/73; PULSE 75; RESP 18; TEMP 36.1; O2SAT 97
[2025-02-03 16:00] VITALS: BP 89/59; PULSE 65; RESP 17; TEMP 35.6; O2SAT 98
[2025-02-03 20:00] VITALS: BP 131/77; PULSE 82; RESP 16; TEMP 36.3; O2SAT 96
[2025-02-04] VITALS: BP 97/71; PULSE 77; RESP 18; TEMP 36.4; O2SAT 99
[2025-02-04 04:00] VITALS: BP 100/69; PULSE 87; RESP 17; TEMP 36.4; O2SAT 96
[2025-02-04 12:00] VITALS: BP 96/71; PULSE 79; RESP 18; TEMP 36.3; O2SAT 97
[2025-02-04 16:00] VITALS: BP 102/71; PULSE 81; RESP 18; TEMP 36.4; O2SAT 98
[2025-02-04 20:00] VITALS: BP 102/52; PULSE 78; RESP 19; TEMP 36.4; O2SAT 98
[2025-02-05] VITALS (7 sets, daily range): BP systolic 81–110; BP diastolic 52–71; PULSE 57–75; RESP 17–19; TEMP 34.5–36.7; O2SAT 89–98
[2025-02-05] MEDS: SODIUM CHLORIDE 0.9% 500 ML IV ONE (23:06)
[2025-02-06] VITALS: BP 119/58; PULSE 64; RESP 18; TEMP 35.4; O2SAT 98
[2025-02-06 02:21] LABS: BASOPHILS % 0.5 % (0.0-2.0); EOSINOPHILS % 1.0 % (0.0-5.0); HEMATOCRIT. 35.7 % (42.0-52.0); HEMOGLOBIN. 11.5 g/dL (14.0-18.0); LYMPHOCYTES % 7.6 % (20.0-50.0); MEAN PLATELET VOLUME 9.0 fl (7.4-10.4); MONOCYTES % 4.7 % (2.0-8.0); NEUTROPHILS % 86.2 % (40.0-76.0); PLATELET 110 x1000/uL (130-400); RED BLOOD CELL COUNT 3.59 mill/uL (4.7-6.1); RED CELL DISTRIBUTION WIDTH 22.3 % (11.6-14.6)
[2025-02-06 02:23] LABS: ADD RBC MORPHOLOGY YES
[2025-02-06 02:51] LABS: CREATININE 0.9 mg/dL (0.6-1.3); UREA NITROGEN BLOOD 44 mg/dL (9-23)
[2025-02-06 04:00] VITALS: BP 139/62; PULSE 76; RESP 18; TEMP 35.4; O2SAT 97
[2025-02-06 08:00] VITALS: BP 73/41; PULSE 71; RESP 16; TEMP 34.4; O2SAT 91
[2025-02-06] MEDS: SODIUM CHLORIDE 0.9% 500 ML IV ONE (11:00)
[2025-02-06 12:00] VITALS: BP 82/49; PULSE 75; RESP 16; TEMP 34.8; O2SAT 90
[2025-02-06 16:00] VITALS: BP 69/42; PULSE 77; RESP 16; TEMP 34.6; O2SAT 94
[2025-02-06 18:02] LABS: PLATELET ESTIMATE DECREASED
[2025-02-06 20:00] VITALS: BP 130/57; PULSE 81; RESP 18; TEMP 35.9; O2SAT 100
[2025-02-06] MEDS ORDERED: CEFEPIME 2GM IN DEXT 5% 100ML IV SCH (23:15)
[2025-02-07] VITALS: BP 125/66; PULSE 97; RESP 18; TEMP 36.2; O2SAT 95
[2025-02-07] MEDS: CEFEPIME 2GM PREMIX 100ML IV SCH (01:00)
[2025-02-07 04:00] VITALS: BP 132/63; PULSE 81; RESP 18; TEMP 35.6; O2SAT 95
[2025-02-07 05:48] LABS: CLARITY URINE CLEAR (CLEAR); COLOR URINE YELLOW (YELLOW); GLUCOSE URINE NEGATIVE (NEGATIVE); KETONES URINE NEGATIVE (NEGATIVE); LEUKOCYTE ESTERASE URINE 1+ (NEGATIVE); NITRITE URINE NEGATIVE (NEGATIVE); OCCULT BLOOD URINE NEGATIVE (NEGATIVE); PH URINE 6.5 (4.5-8.0); PROTEIN URINE 1+ (NEGATIVE); SPECIFIC GRAVITY URINE 1.024 (1.005-1.030); UROBILINOGEN URINE 0.2 E.U./dL (0.2-1.0)
[2025-02-07 06:16] LABS: BACTERIA URINE TRACE; RBC URINE 0-2 /hpf (0-2); SQUAMOUS EPITHELIAL CELL URINE RARE /lpf (RARE/1+)
[2025-02-07 08:00] VITALS: BP 105/80; PULSE 86; RESP 17; TEMP 36.1; O2SAT 97
[2025-02-07 12:00] VITALS: BP 128/58; PULSE 81; RESP 18; TEMP 35.9; O2SAT 95
[2025-02-07] MEDS: MIDODRINE HCL 5MG TABLET PO NR (13:01)
[2025-02-07] MEDS: MIDODRINE HCL 5MG TABLET PO PRN (15:10)
[2025-02-07 16:00] VITALS: BP 74/47; PULSE 73; RESP 17; TEMP 35.7; O2SAT 94
[2025-02-07] MEDS: SODIUM CHLORIDE 0.9% 500 ML IV NR (17:10)
[2025-02-07] MEDS ORDERED: MIDODRINE HCL 5MG TABLET PO PRN (18:00)
[2025-02-07] MEDS: MIDODRINE HCL 5MG TABLET PO SCH (18:16)
[2025-02-07 20:00] VITALS: BP 77/40; PULSE 70; RESP 16; TEMP 36.3; O2SAT 98
[2025-02-07] MEDS: SODIUM CHLORIDE 0.9% 500 ML IV ONE (21:17)
[2025-02-08] VITALS: BP 105/48; PULSE 66; RESP 19; TEMP 36.1; O2SAT 99
[2025-02-08 04:00] VITALS: BP 94/48; PULSE 72; RESP 20; TEMP 36.5; O2SAT 98
[2025-02-08 08:00] VITALS: BP 76/75; PULSE 66; RESP 18; TEMP 36.7; O2SAT 95
[2025-02-08 12:00] VITALS: BP 76/45; PULSE 67; RESP 20; TEMP 36.5; O2SAT 98
[2025-02-08 16:00] VITALS: BP 89/67; PULSE 73; RESP 17; TEMP 36.6; O2SAT 96
[2025-02-08 20:00] VITALS: BP 107/54; PULSE 70; RESP 22; TEMP 36.4; O2SAT 97
[2025-02-09] VITALS: BP 105/53; PULSE 64; RESP 22; TEMP 36.3; O2SAT 96
[2025-02-09 04:00] VITALS: BP 99/51; PULSE 65; RESP 22; TEMP 35.7; O2SAT 97
[2025-02-09 08:00] VITALS: BP 88/59; PULSE 69; RESP 20; TEMP 37.2; O2SAT 97
[2025-02-09 12:00] VITALS: BP 94/47; PULSE 67; RESP 20; TEMP 36.8; O2SAT 95
[2025-02-09 16:00] VITALS: BP 83/54; PULSE 84; RESP 17; TEMP 36.6; O2SAT 96
[2025-02-09 20:00] VITALS: BP 95/69; PULSE 57; RESP 21; TEMP 35.2; O2SAT 96
[2025-02-10] VITALS: BP 109/59; PULSE 56; RESP 19; TEMP 36.4; O2SAT 95
[2025-02-10 04:00] VITALS: BP 117/74; PULSE 60; RESP 18; TEMP 36; O2SAT 95
[2025-02-10 20:00] VITALS: BP 115/55; PULSE 47; RESP 18; TEMP 36.4; O2SAT 98
[2025-02-11] VITALS: BP 98/62; PULSE 45; RESP 18; TEMP 36.5; O2SAT 99
[2025-02-11 04:00] VITALS: BP 146/126; PULSE 105; RESP 20; TEMP 36.3; O2SAT 98
[2025-02-11 08:00] VITALS: BP 86/53; PULSE 53; RESP 20; TEMP 34.4; O2SAT 77; O2SAT 97
[2025-02-11 12:00] VITALS: BP 93/72; PULSE 62; RESP 20; TEMP 35.1; O2SAT 78
[2025-02-11 16:00] VITALS: BP 89/61; PULSE 63; RESP 20; TEMP 34.9; O2SAT 95
[2025-02-11 20:00] VITALS: BP 90/66; PULSE 90; RESP 18; TEMP 36.1; O2SAT 90
[2025-02-12] VITALS (9 sets, daily range): BP systolic 73–108; BP diastolic 41–64; PULSE 72–102; RESP 19–30; TEMP 35.6–36.7; O2SAT 94–100
[2025-02-12 15:59] LABS: BG BASE EXCESS -4.2 mmol/L (-2.0-3.0); BG CARBOXYHEMOGLOBIN 1.0 % (0.5-1.5); BG DEOXYHEMOGLOBIN 8.0 % (0.0-5.0); BG FRACTION INSPIRED OXYGEN 34; BG HCO3 ACT 19.1 mmol/L (21.0-28.0); BG METHEMOGLOBIN 0.1 % (0.5-1.5); BG OXYGEN SATURATION 91.9 % (94.0-98.0); BG OXYHEMOGLOBIN 90.9 % (94.0-98.0); BG PCO2 28.5 mmHg (35.0-48.0); BG PH 7.443 (7.350-7.450); BG PO2 64.5 mmHg (83.0-108.0); BG SAMPLE SITE RIGHT RADIAL; BG TOTAL HEMOGLOBIN 9.4 g/dL (13.5-17.5); BG VENT MODE NASAL CANNULA
[2025-02-12 17:34] LABS: CREATININE 1.1 mg/dL (0.6-1.3); UREA NITROGEN BLOOD 52 mg/dL (9-23)
[2025-02-12 17:36] LABS: ASPARTATE AMINOTRANSFERASE 208 IU/L (<34); BILIRUBIN DIRECT < 0.1 mg/dL (<=3.0); BILIRUBIN TOTAL 0.2 mg/dL (0.1-1.0); PHOSPHORUS 4.2 mg/dL (2.5-4.9); PROTEIN TOTAL 6.1 g/dL (6.0-8.3)
[2025-02-12] MEDS: IPRATROPIUM/ALBUTEROL 0.5-3(2.5)MG/3ML NEB ORI SCH (20:24)
[2025-02-12] MEDS: BUDESONIDE 0.5MG/2ML NEB HHN SCH (20:24)
[2025-02-12] MEDS: SODIUM ZIRCONIUM CYCLOSILICATE 10GM/PACKET PO SCH (21:47)
[2025-02-12] MEDS: LACTATED RINGERS 1,000 ML IV SCH (22:38)
[2025-02-12] MEDS ORDERED: PHENYLEPHRINE 50MG/250ML PMX 250 ML IV PRN (23:45)
[2025-02-13] VITALS (124 sets, daily range): BP systolic 81–270; BP diastolic 33–132; PULSE 70–132; RESP 15–57; TEMP 36.5–37.1; O2SAT 81–100
[2025-02-13 00:04] LABS: BG BASE EXCESS -2.5 mmol/L (-2.0-3.0); BG CARBOXYHEMOGLOBIN 1.3 % (0.5-1.5); BG DEOXYHEMOGLOBIN 10.4 % (0.0-5.0); BG FLOW(L/min) 40.00 L/min; BG FRACTION INSPIRED OXYGEN 60; BG HCO3 ACT 19.9 mmol/L (21.0-28.0); BG METHEMOGLOBIN 0.0 % (0.5-1.5); BG OXYGEN SATURATION 89.5 % (94.0-98.0); BG OXYHEMOGLOBIN 88.3 % (94.0-98.0); BG PCO2 25.6 mmHg (35.0-48.0); BG PH 7.509 (7.350-7.450); BG PO2 55.8 mmHg (83.0-108.0); BG SAMPLE SITE RIGHT RADIAL; BG TOTAL HEMOGLOBIN 7.9 g/dL (13.5-17.5); BG VENT MODE HIGH FLOW
[2025-02-13 00:41] LABS: HEMATOCRIT. 21.8 % (42.0-52.0); MEAN PLATELET VOLUME 10.6 fl (7.4-10.4); RED BLOOD CELL COUNT 2.23 mill/uL (4.7-6.1); RED CELL DISTRIBUTION WIDTH 23.8 % (11.6-14.6)
[2025-02-13] MEDS: NOREPINEPHRINE 8MG/250ML PMX 250 ML IV NR (00:52)
[2025-02-13] MEDS: LACTATED RINGERS 1,000 ML IV SCH (00:53)
[2025-02-13] MEDS: DEXMEDETOMIDINE 250 ML IV PRN (00:53)
[2025-02-13] MEDS: PHENYLEPHRINE 100 MG in DEXT 5% WATER 240 ML IV PRN (00:55)
[2025-02-13] MEDS: PHENYLEPHRINE 50MG/250ML PMX 250 ML IV PRN (01:16)
[2025-02-13 01:48] LABS: HEMOGLOBIN. 7.0 g/dL (14.0-18.0); PLATELET 23 x1000/uL (130-400)
[2025-02-13] MEDS: FENTANYL 2500MCG/250ML PMX 250 ML IV ONE (02:12)
[2025-02-13 02:33] LABS: BAND% 30.0 % (1.0-6.0); EOSINOPHILS % MANUAL 1.0 % (0.0-5.0); LYMPHOCYTES % MANUAL 4.0 % (20.0-50.0); MONOCYTES % MANUAL 8.0 % (2.0-8.0); NEUTROPHILS % MANUAL 57.0 % (45.0-75.0); PLATELET ESTIMATE MARKEDLY DECREASED
[2025-02-13] MEDS: VASOPRESSIN 20 UNIT in SODIUM CHLORIDE 0.9% 99 ML IV PRN (02:53)
[2025-02-13 03:11] LABS: BG BASE EXCESS -4.9 mmol/L (-2.0-3.0); BG CARBOXYHEMOGLOBIN 0.9 % (0.5-1.5); BG DEOXYHEMOGLOBIN 13.3 % (0.0-5.0); BG FRACTION INSPIRED OXYGEN 80; BG HCO3 ACT 21.1 mmol/L (21.0-28.0); BG METHEMOGLOBIN 0.3 % (0.5-1.5); BG OXYGEN SATURATION 86.5 % (94.0-98.0); BG OXYHEMOGLOBIN 85.5 % (94.0-98.0); BG PCO2 42.8 mmHg (35.0-48.0); BG PEEP (cmH2O) 5.0 cmH2O; BG PH 7.310 (7.350-7.450); BG PO2 59.9 mmHg (83.0-108.0); BG SAMPLE SITE RIGHT RADIAL; BG TIDAL VOLUME(mL) 400.0 mL; BG TOTAL HEMOGLOBIN 10.2 g/dL (13.5-17.5); BG TOTAL RESPIRATORY RATE 18 b/min; BG VENT MODE VENT - AC; BG VENT RATE 18.0 set
[2025-02-13 06:15] LABS: HEMATOCRIT. 23.7 % (42.0-52.0); HEMOGLOBIN. 7.6 g/dL (14.0-18.0); MEAN PLATELET VOLUME 9.8 fl (7.4-10.4); RED BLOOD CELL COUNT 2.38 mill/uL (4.7-6.1); RED CELL DISTRIBUTION WIDTH 23.9 % (11.6-14.6)
[2025-02-13 06:29] LABS: UREA NITROGEN BLOOD 78.0 mg/dL (9-23)
[2025-02-13 06:32] LABS: PLATELET 17 x1000/uL (130-400)
[2025-02-13 07:56] LABS: CREATININE 1.6 mg/dL (0.6-1.3)
[2025-02-13] MEDS: DEXTROSE 50% WATER 50ML SYRINGE IV NR (09:17)
[2025-02-13] MEDS: SODIUM CHLORIDE 0.45% 1,000 ML IV SCH (09:18)
[2025-02-13] MEDS: INSULIN REGULAR (HUMULIN R) 1000UNITS/10ML VIAL IV NR (09:20)
[2025-02-13] MEDS: CALCIUM GLUCONATE 100MG/ML 10ML VIAL IV SCH (09:43)
[2025-02-13] MEDS: ALBUTEROL (0.5%) 2.5MG/0.5ML NEB HHN SCH (10:13)
[2025-02-13] MEDS: DEXTROSE 50% WATER 50ML SYRINGE IV PRN ×2 (10:37→16:14)
[2025-02-13] MEDS ORDERED: CEFEPIME 2GM IN DEXT 5% 100ML IV SCH (11:30)
[2025-02-13] MEDS: CEFEPIME 2GM PREMIX 100ML IV SCH (12:28)
[2025-02-13] MEDS: NOREPINEPHRINE 8MG/250ML PMX 250 ML IV PRN (12:28)
[2025-02-13 15:20] LABS: CREATININE 1.9 mg/dL (0.6-1.3); UREA NITROGEN BLOOD 85.0 mg/dL (9-23)
[2025-02-13] MEDS ORDERED: BLOOD SUGAR DIAGNOSTIC STRIP TEST SCH (15:45)
[2025-02-13] MEDS: BLOOD SUGAR DIAGNOSTIC STRIP TEST SCH (16:00)
[2025-02-13] MEDS: SODIUM ZIRCONIUM CYCLOSILICATE 10GM/PACKET PO SCH (17:45)
[2025-02-13] MEDS: MICAFUNGIN 100 MG in SODIUM CHLORIDE 0.9% 100 ML IV SCH (18:28)
[2025-02-13] MEDS: DEXT 5%/0.45% NACL 1000ML 1,000 ML IV SCH (20:55)
[2025-02-13 21:27] LABS: BAND% 39.0 % (1.0-6.0); EOSINOPHILS % MANUAL 5.0 % (0.0-5.0); LYMPHOCYTES % MANUAL 3.0 % (20.0-50.0); METAMYELOCYTES % 2.0 % (0-0); MONOCYTES % MANUAL 5.0 % (2.0-8.0); MYELOCYTES % 3.0 % (0-0); NEUTROPHILS % MANUAL 43.0 % (45.0-75.0); NUCLEATED RED BLOOD CELLS 14 /100 WBC; PLATELET ESTIMATE MARKEDLY DECREASED
[2025-02-14] VITALS (77 sets, daily range): BP systolic 57–135; BP diastolic 22–58; PULSE 0–135; RESP 10–63; TEMP 35.9–36.4; O2SAT 85–100
[2025-02-14 05:33] LABS: CREATININE 2.3 mg/dL (0.6-1.3)
[2025-02-14] MEDS ORDERED: FENTANYL 2500MCG/250ML PMX 250 ML IV PRN (06:15)
[2025-02-14] MEDS ORDERED: ATOVAQUONE 750MG/5ML PACKET PO SCH (07:00)
[2025-02-14 07:04] LABS: UREA NITROGEN BLOOD 110.0 mg/dL (9-23)
[2025-02-14] MEDS: ATOVAQUONE 750 MG/5 ML UDC PO SCH (07:46)
[2025-02-14 08:36] LABS: BG BASE EXCESS -13.4 mmol/L (-2.0-3.0); BG CARBOXYHEMOGLOBIN 1.4 % (0.5-1.5); BG DEOXYHEMOGLOBIN 16.6 % (0.0-5.0); BG FRACTION INSPIRED OXYGEN 75; BG HCO3 ACT 14.7 mmol/L (21.0-28.0); BG METHEMOGLOBIN 0.4 % (0.5-1.5); BG OXYGEN SATURATION 83.1 % (94.0-98.0); BG OXYHEMOGLOBIN 81.6 % (94.0-98.0); BG PCO2 45.7 mmHg (35.0-48.0); BG PEEP (cmH2O) 5.0 cmH2O; BG PH 7.124 (7.350-7.450); BG PO2 63.1 mmHg (83.0-108.0); BG TIDAL VOLUME(mL) 400.0 mL; BG TOTAL HEMOGLOBIN 6.2 g/dL (13.5-17.5); BG VENT MODE VENT - AC; BG VENT RATE 18.0 set
[2025-02-14] MEDS ORDERED: METOCLOPRAMIDE HCL 10MG/2ML VIAL IV SCH (09:00)
[2025-02-14 09:12] LABS: ABSOLUTE BASOPHILS 0.0 x10E3/uL (0.0-0.2); ABSOLUTE EOSINOPHILS 0.1 x10E3/uL (0.0-0.4); ABSOLUTE LYMPHOCYTES 0.5 x10E3/uL (0.7-3.1); ABSOLUTE MONOCYTES 0.3 x10E3/uL (0.1-0.9); ABSOLUTE NEUTROPHILS 5.7 x10E3/uL (1.4-7.0); BANDS 14 % (Not Estab.); BASOPHILS 0 % (Not Estab.); EOSINOPHILS 1 % (Not Estab.); HEMATOLOGY COMMENT Note: (.); IMMATURE CELLS Note (.); LYMPHOCYTES 7 % (Not Estab.); MEAN CORPUSCULAR HGB CONC. 33.6 g/dL (31.5-35.7); MONOCYTES 5 % (Not Estab.); NEUTROPHILS 71 % (Not Estab.); NUCLEATED RBC 4 % (0 - 0); RBC 2.83 x10E6/uL (4.14-5.80); RED CELL DISTRIBUTION WIDTH 18.1 % (11.6-15.4); WBC 6.7 x10E3/uL (3.4-10.8)
[2025-02-14] MEDS: SODIUM BICARBONATE 8.4% 50MEQ/50ML SYR IV SCH (09:22)
[2025-02-14] MEDS: DEXT 5%/0.45% NACL 1000ML 1,000 ML IV SCH (09:23)
[2025-02-14] MEDS: METOCLOPRAMIDE HCL 10MG/2ML VIAL IV PRN (09:32)
[2025-02-14] MEDS ORDERED: LIDOCAINE HCL 1% 10 MG/ML 10ML VIAL ONE (11:13)
[2025-02-14] MEDS: AMIODARONE 150MG/100ML D5W 100 ML IV NR (11:14)
[2025-02-14] MEDS ORDERED: AMIODARONE HCL 900 MG in DEXT 5% WATER 482 ML IV SCH (11:30)
[2025-02-14] MEDS: DEXTROSE 50% WATER 50ML SYRINGE IV SCH (11:44)
[2025-02-14] MEDS: INSULIN REGULAR (HUMULIN R) 1000UNITS/10ML VIAL IV SCH (11:45)
[2025-02-14] MEDS: EPINEPHRINE 5 MG in SODIUM CHLORIDE 0.9% 245 ML IV PRN (12:08)
[2025-02-14 19:06] LABS: % CD 3 POS. LYMPHOCYTES 94.3 % (57.5-86.2); % CD 4 POS. LYMPHOCYTES 7.0 % (30.8-58.5); % CD 8 POS. LYMPH 88.5 % (12.0-35.5); ABSOLUTE CD 3 472 /uL (622-2402); ABSOLUTE CD 4 HELPER 35 /uL (359-1519); ABSOLUTE CD 8 SUPPRESSOR 443 /uL (109-897)
[2025-02-20] MEDS ORDERED: AZITHROMYCIN 600 MG TABLET PO SCH (09:00)
== END 2025-02-14 12:20 | DRG 890 ==
LOC: ER 13:41 → 8WST 19:22 → ENRESERV 21:06 → 6EST 12-28 10:20 → 6WST 12-30 04:49 → 5EST 12-30 14:43 → CVICU 01-12 23:47 → 8WST 01-16 19:55 → 6EST 01-20 03:30 → 5EST 02-12 20:30 → MICUSO 02-13 00:40
PROVIDERS: ADMIT Internal Medicine; ATTEND Internal Medicine
PROC: 4A00X4Z Measurement of Central Nervous Electrical Activity, External Approach (ICD-10-PCS; 2024-12-11)
PROC: 009U3ZX Drainage of Spinal Canal, Percutaneous Approach, Diagnostic (ICD-10-PCS; 2024-12-20)
PROC: B01B1ZZ Fluoroscopy of Spinal Cord using Low Osmolar Contrast (ICD-10-PCS; 2024-12-20)
PROC: 5A0935A Assistance with Respiratory Ventilation, Less than 24 Consecutive Hours, High Flow/Velocity Cannula (ICD-10-PCS; 2024-12-30)
PROC: 0DH63UZ Insertion of Feeding Device into Stomach, Percutaneous Approach (ICD-10-PCS; principal; 2025-01-04)
PROC: 0DB58ZX Excision of Esophagus, Via Natural or Artificial Opening Endoscopic, Diagnostic (ICD-10-PCS; 2025-01-04)
PROC: 0DB78ZX Excision of Stomach, Pylorus, Via Natural or Artificial Opening Endoscopic, Diagnostic (ICD-10-PCS; 2025-01-04)
PROC: 0BH17EZ Insertion of Endotracheal Airway into Trachea, Via Natural or Artificial Opening (ICD-10-PCS; 2025-01-12)
PROC: 5A1945Z Respiratory Ventilation, 24-96 Consecutive Hours (ICD-10-PCS; 2025-01-13)
PROC: 0JB70ZZ Excision of Back Subcutaneous Tissue and Fascia, Open Approach (ICD-10-PCS; 2025-02-02)
PROC: 5A0935A Assistance with Respiratory Ventilation, Less than 24 Consecutive Hours, High Flow/Velocity Cannula (ICD-10-PCS; 2025-02-12)
PROC: 0BH17EZ Insertion of Endotracheal Airway into Trachea, Via Natural or Artificial Opening (ICD-10-PCS; 2025-02-13)
PROC: 5A1945Z Respiratory Ventilation, 24-96 Consecutive Hours (ICD-10-PCS; 2025-02-13)
PROC: 5A12012 Performance of Cardiac Output, Single, Manual (ICD-10-PCS; 2025-02-14)
DX: A41.9 Sepsis, unspecified organism (principal); B20 Human immunodeficiency virus [HIV] disease; G92.8 Other toxic encephalopathy; J69.0 Pneumonitis due to inhalation of food and vomit; N17.0 Acute kidney failure with tubular necrosis; E22.2 Syndrome of inappropriate secretion of antidiuretic hormone; A52.3 Neurosyphilis, unspecified; B59 Pneumocystosis; E72.09 Other disorders of amino-acid transport; B37.0 Candidal stomatitis; J96.01 Acute respiratory failure with hypoxia; L89.154 Pressure ulcer of sacral region, stage 4; D69.6 Thrombocytopenia, unspecified; R13.12 Dysphagia, oropharyngeal phase; E83.39 Other disorders of phosphorus metabolism; E83.42 Hypomagnesemia; J33.8 Other polyp of sinus; N30.90 Cystitis, unspecified without hematuria; D64.9 Anemia, unspecified; E87.6 Hypokalemia; D72.819 Decreased white blood cell count, unspecified; N18.9 Chronic kidney disease, unspecified; L85.3 Xerosis cutis; F32.9 Major depressive disorder, single episode, unspecified; E87.5 Hyperkalemia; E86.0 Dehydration; E03.9 Hypothyroidism, unspecified; B16.9 Acute hepatitis B without delta-agent and without hepatic coma; B18.1 Chronic viral hepatitis B without delta-agent; J43.2 Centrilobular emphysema; F12.10 Cannabis abuse, uncomplicated; L22 Diaper dermatitis; E88.09 Other disorders of plasma-protein metabolism, not elsewhere classified; R62.7 Adult failure to thrive; F41.9 Anxiety disorder, unspecified; K21.9 Gastro-esophageal reflux disease without esophagitis; R41.843 Psychomotor deficit; E87.0 Hyperosmolality and hypernatremia; E87.4 Mixed disorder of acid-base balance; I47.20 Ventricular tachycardia, unspecified; K29.70 Gastritis, unspecified, without bleeding; A53.0 Latent syphilis, unspecified as early or late; Z86.73 Personal history of transient ischemic attack (TIA), and cerebral infarction without residual deficits; Z93.1 Gastrostomy status; Z79.82 Long term (current) use of aspirin; Z79.899 Other long term (current) drug therapy; Z79.02 Long term (current) use of antithrombotics/antiplatelets; Z68.1 Body mass index [BMI] 19.9 or less, adult; Z78.1 Physical restraint status; Z82.49 Family history of ischemic heart disease and other diseases of the circulatory system; Z87.891 Personal history of nicotine dependence
CPT/HCPCS: 31500; 31720; 36415; 36600; 62328; 70551; 71045; 71260; 71275; 74177; 76700; 76770; 80048; 80061; 80076; 80202; 80305; 81003; 82140; 82270; 82330; 82375; 82533; 82550; 82607; 82728; 82746; 82805; 82945; 82962; 83036; 83540; 83550; 83605; 83615; 83735; 83880; 83930; 83935; 84100; 84134; 84145; 84155; 84165; 84295; 84300; 84439; 84443; 84478; 84481; 84484; 84550; 85025; 85027; 85044; 85379; 86359; 86360; 86592; 86593; 86635; 86658; 86701; 86702; 86705; 86709; 87070; 87106; 87254; 87340; 87389; 87899; 88305; 88312; 88313; 92610; 92950; 93005; 93970; 94002; 94003; 94070; 94640; 94664; 94760; 95816; 97110; 97112; 97162; 97164; 97166; 97168; 97530; 97535; 98960; 99291; A4565; A4606; A6449; J0282; J0360; J0456; J0561; J0612; J0692; J0696; J1171; J1308; J1644; J1650; J1815; J1885; J2003; J2248; J2371; J2405; J2470; J2540; J2543; J2704; J2765; J2919; J3010; J3373; J3475; J3480; J3490; J7030; J7050; J7060; J7120; J7626; Q9967